=== PATIENT | female | born 1980 | race Caucasian/White ===

== ENCOUNTER 2018-12-13 10:26 | Emergency (ER) | payer SELFPAY ==
[~2018-12-13] VITALS: Ht 152.4 cm; Wt 68.2 kg
[2018-12-13] MEDS ORDERED: LEXA1TAB2 PO (10:47)
[2018-12-13] MEDS ORDERED: METH5TA PO (10:47)
[2018-12-13] MEDS ORDERED: ADDE20CA3 PO (10:47)
[2018-12-13 12:00] LABS: BASO % 0.4 % (0.0-1.0); EOS % 0.2 % (0.0-3.0); HEMATOCRIT 43.4 % (36.0-47.0); HEMOGLOBIN 14.7 g/dl (12.0-15.5); LYMPH # 1.1 10^3/uL (1.5-5.0); LYMPH % 12.8 % (24.0-44.0); MEAN CORPUSCULAR HEMOGLOBIN 29.3 pg (27.0-33.0); MEAN CORPUSCULAR HGB CONC 33.9 g/dl (32.0-36.5); MEAN CORPUSCULAR VOLUME 86.6 fl (80.0-96.0); MONO # 0.4 10^3/uL (0.0-0.8); MONO % 4.6 % (0.0-5.0); NEUTROPHILS % 81.8 % (36.0-66.0); PLATELET COUNT, AUTOMATED 200 10^3/uL (150-450); RED BLOOD COUNT 5.01 10^6/uL (4.00-5.40); WHITE BLOOD COUNT 8.6 10^3/uL (4.0-10.0)
[2018-12-13] MEDS ORDERED: cloNIDine 0.1 MG TAB PO ONE (12:15)
[2018-12-13] MEDS ORDERED: PROMETHAZINE INJ 25 MG/ML VIAL (J2550) IV ONE (12:15)
[2018-12-13] MEDS ORDERED: NS 1,000 ML IV ONE (12:15)
[2018-12-13 12:26] LABS: ALBUMIN 3.7 GM/DL (3.2-5.2); BILIRUBIN,DIRECT 0.1 MG/DL (0.0-0.2); BILIRUBIN,TOTAL 0.5 MG/DL (0.2-1.0); TOTAL PROTEIN 7.1 GM/DL (6.4-8.2)
[2018-12-13 12:28] VITALS: BP 155/73
[2018-12-13 12:50] LABS: HCG, SERUM QUALITATIVE NEGATIVE (NEGATIVE)
[2018-12-13] MEDS ORDERED: ISOVUE-370 76% 100ML VIAL (Q9967) As Ordered ONE (13:03)
[2018-12-13] MEDS ORDERED: NS 1,000 ML IV SCH (13:42)
--- NOTE | 2018-12-13 14:04 | REP ---
REASON: Generalized abdominal pain. PRIORS: None. CONTRAST: 100 mL Isovue-370 The lung bases are clear. The liver, gallbladder, spleen, pancreas, adrenal glands, and kidneys are within normal limits. The abdominal aorta and para-aortic regions are within normal limits. There is no free fluid or free air. The bowel loops and their mesenteries are within normal limits. There is no evidence of an intra-abdominal mass or adenopathy. CT PELVIS: There is no pelvic mass or adenopathy. There is no free fluid or free air. The bowel loops and their mesenteries are within normal limits. Bone window technique throughout the exam shows the osseous structures to be within normal limits. IMPRESSION: CT findings are within normal limits. Electronically Signed by Harjit Quintanilla DO 12/13/2018 03:20 P
[2018-12-13 16:30] VITALS: BP 148/88
== END 2018-12-13 16:59 | disposition home or self-care (01) ==
LOC: M ED 10:26 → EDBD 10:26 → M ED 16:59
DX: F11.23 Opioid dependence with withdrawal (principal); F33.9 Major depressive disorder, recurrent, unspecified; F41.9 Anxiety disorder, unspecified; F43.10 Post-traumatic stress disorder, unspecified; Z79.899 Other long term (current) drug therapy; F17.210 Nicotine dependence, cigarettes, uncomplicated
CPT/HCPCS: 74177; 80047; 80076; 83690; 84702; 84703; 85025; 93041; 96361; 96374; 99285; Q9967

== ENCOUNTER 2019-02-22 15:02 | Inpatient (IN) | payer OTHER, SELFPAY ==
[~2019-02-22] VITALS: Ht 152.4 cm; Wt 63.6 kg
[~2019-02-22 15:02] MED LIST: ADDE20CA3 PO; LEXA1TAB2 PO; METH5TA PO
[2019-02-22 16:48] LABS: HEMATOCRIT 38.8 % (36.0-47.0); HEMOGLOBIN 12.9 g/dl (12.0-15.5); MEAN CORPUSCULAR HEMOGLOBIN 29.5 pg (27.0-33.0); MEAN CORPUSCULAR HGB CONC 33.2 g/dl (32.0-36.5); MEAN CORPUSCULAR VOLUME 88.8 fl (80.0-96.0); PLATELET COUNT, AUTOMATED 195 10^3/uL (150-450); RED BLOOD COUNT 4.37 10^6/uL (4.00-5.40); WHITE BLOOD COUNT 8.2 10^3/uL (4.0-10.0)
[2019-02-22 17:23] LABS: HCG, SERUM QUALITATIVE NEGATIVE (NEGATIVE)
[2019-02-22 17:30] LABS: ACETAMINOPHEN LEVEL < 2.0 UG/ML (10.0-30.0); ALBUMIN 3.2 GM/DL (3.2-5.2); ALT/SGPT 21 U/L (12-78); BILIRUBIN,DIRECT < 0.1 MG/DL (0.0-0.2); BILIRUBIN,TOTAL 0.2 MG/DL (0.2-1.0); BLOOD UREA NITROGEN 14 MG/DL (7-18); CALCIUM LEVEL 7.7 MG/DL (8.5-10.1); CARBON DIOXIDE LEVEL 29 MEQ/L (21-32); CHLORIDE LEVEL 106 MEQ/L (98-107); CREATININE FOR GFR 0.65 MG/DL (0.55-1.30); ETHYL ALCOHOL (ETHANOL) < 0.003 % (0.000-0.010); GLOMERULAR FILTRATION RATE > 60.0 (>60); GLUCOSE, FASTING 83 MG/DL (70-100); SALICYLATE LEVEL 1.9 MG/DL (5.0-30.0); SODIUM LEVEL 140 MEQ/L (136-145); TOTAL PROTEIN 6.1 GM/DL (6.4-8.2)
[2019-02-22 17:59] LABS: AMPHETAMINES LEVEL URINE NEGATIVE (NEGATIVE); BARBITURATES URINE NEGATIVE (NEGATIVE); BENZODIAZEPINES URINE NEGATIVE (NEGATIVE); CANNABINOIDS URINE POSITIVE (NEGATIVE); COCAINE METABOLITE URINE NEGATIVE (NEGATIVE); METHADONE URINE NEGATIVE (NEGATIVE); OPIATES URINE NEGATIVE (NEGATIVE); PHENCYCLIDINE URINE NEGATIVE (NEGATIVE)
[2019-02-22] MEDS ORDERED: traZODone 50 MG TAB PO PRN (18:45)
[2019-02-22] MEDS ORDERED: MAALOX 30 ML SUSP *UDC PO PRN (18:45)
[2019-02-22] MEDS ORDERED: ACETAMINOPHEN TAB 650MG DOSE (2X325MG) PO PRN (18:45)
[2019-02-22] MEDS ORDERED: MOM 30ML SUSPENSION UDC PO PRN (18:45)
[2019-02-22] MEDS ORDERED: ESCITALOPRAM OXALATE 10 MG TAB (LEXAPRO) PO ONE (19:00)
[2019-02-22] MEDS ORDERED: SUBO12MI SL (19:24)
[2019-02-22] MEDS ORDERED: DOCU100C17 PO (19:24)
[2019-02-22 20:39] VITALS: BP 110/57
[2019-02-23 06:05] VITALS: BP 114/55
[2019-02-23] MEDS ORDERED: BUPRENORPHINE/NALOXONE 8-2MG SUBLINGUAL TABLET(SUBOXONE) SL SCH (09:00)
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
[2019-02-23] MEDS ORDERED: BUPRENORPHINE/NALOXONE 8-2MG SUBLINGUAL TABLET(SUBOXONE) SL ONE (14:45)
[2019-02-23] MEDS: NICOTINE 21MG/24HR 1 EA TRANSDERMAL TD SCH (15:12)
[2019-02-23] MEDS ORDERED: DOCUSATE SODIUM 100 MG CAP PO PRN (15:15)
[2019-02-23] MEDS: ARIPiprazole 2 MG TAB PO SCH (17:46)
[2019-02-23] MEDS: ESCITALOPRAM OXALATE 10 MG TAB (LEXAPRO) PO SCH (17:46)
[2019-02-23 18:00] VITALS: BP 135/78
[2019-02-24 06:30] VITALS: BP 119/71
[2019-02-24] MEDS: NICOTINE 21MG/24HR 1 EA TRANSDERMAL TD SCH (08:28)
[2019-02-24] MEDS: ESCITALOPRAM OXALATE 10 MG TAB (LEXAPRO) PO SCH (08:28)
[2019-02-24] MEDS: ARIPiprazole 2 MG TAB PO SCH (08:28)
[2019-02-24] MEDS ORDERED: BUPRENORPHINE/NALOXONE 8-2MG SUBLINGUAL TABLET(SUBOXONE) SL SCH (09:00)
[2019-02-24] MEDS ORDERED: SUBO12MI SL (10:20)
[2019-02-24] MEDS ORDERED: LEXA1TAB2 PO (10:20)
[2019-02-24] MEDS ORDERED: NICO21PAT TD (10:20)
[2019-02-24] MEDS ORDERED: ABIL1TAB13 PO (10:20)
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
== END 2019-02-24 14:35 | disposition home or self-care (01) | DRG 758 ==
LOC: M ED 15:02 → M ED INP 18:33 → M PSY 20:24
PROVIDERS: ADMIT Psychiatry & Neurology Psychiatry; ATTEND Psychiatry & Neurology Addiction Medicine
DX: F63.9 Impulse disorder, unspecified (principal); F32.9 Major depressive disorder, single episode, unspecified; F15.20 Other stimulant dependence, uncomplicated; F16.20 Hallucinogen dependence, uncomplicated; F11.20 Opioid dependence, uncomplicated; F17.210 Nicotine dependence, cigarettes, uncomplicated; F60.3 Borderline personality disorder; Z62.810 Personal history of physical and sexual abuse in childhood; Z63.5 Disruption of family by separation and divorce; Z79.899 Other long term (current) drug therapy; Z91.14 Patient's other noncompliance with medication regimen; Z60.8 Other problems related to social environment

== ENCOUNTER 2019-03-21 13:16 | Inpatient (IN) | payer OTHER ==
[~2019-03-21] VITALS: Ht 152.4 cm; Wt 59.9 kg
[2019-03-21] MEDS: NICOTINE 21MG/24HR 1 EA TRANSDERMAL TD SCH (09:00)
[~2019-03-21 13:16] MED LIST changes: +ABIL1TAB13 PO; +DOCU100C17 PO; +NICO21PAT TD; +SUBO12MI SL
[2019-03-21 14:31] LABS: HEMATOCRIT 44.3 % (36.0-47.0); HEMOGLOBIN 14.3 g/dl (12.0-15.5); MEAN CORPUSCULAR HEMOGLOBIN 29.1 pg (27.0-33.0); MEAN CORPUSCULAR HGB CONC 32.3 g/dl (32.0-36.5); MEAN CORPUSCULAR VOLUME 90.2 fl (80.0-96.0); PLATELET COUNT, AUTOMATED 218 10^3/uL (150-450); RED BLOOD COUNT 4.91 10^6/uL (4.00-5.40); WHITE BLOOD COUNT 7.7 10^3/uL (4.0-10.0)
[2019-03-21 14:55] LABS: HCG, SERUM QUALITATIVE NEGATIVE (NEGATIVE)
[2019-03-21 15:02] LABS: ACETAMINOPHEN LEVEL < 2.0 UG/ML (10.0-30.0); ALBUMIN 3.6 GM/DL (3.2-5.2); ALT/SGPT 22 U/L (12-78); BILIRUBIN,DIRECT < 0.1 MG/DL (0.0-0.2); BILIRUBIN,TOTAL 0.3 MG/DL (0.2-1.0); BLOOD UREA NITROGEN 15 MG/DL (7-18); CARBON DIOXIDE LEVEL 26 MEQ/L (21-32); CHLORIDE LEVEL 109 MEQ/L (98-107); CK-MB VALUE MASS < 1.0 NG/ML (<3.6); CPK CREATINE PHOSPHOKINASE 41 U/L (26-192); CREATININE FOR GFR 0.82 MG/DL (0.55-1.30); ETHYL ALCOHOL (ETHANOL) < 0.003 % (0.000-0.010); GLOMERULAR FILTRATION RATE > 60.0 (>60); GLUCOSE, FASTING 82 MG/DL (70-100); MB/CK RELATIVE INDEX 2.44 (< OR =4); POTASSIUM SERUM 4.1 MEQ/L (3.5-5.1); SODIUM LEVEL 141 MEQ/L (136-145); TOTAL PROTEIN 6.7 GM/DL (6.4-8.2); TROPONIN I < 0.02 NG/ML (< 0.10)
[2019-03-21 16:59] LABS: AMPHETAMINES LEVEL URINE POSITIVE (NEGATIVE); BARBITURATES URINE NEGATIVE (NEGATIVE); BENZODIAZEPINES URINE NEGATIVE (NEGATIVE); CANNABINOIDS URINE POSITIVE (NEGATIVE); COCAINE METABOLITE URINE NEGATIVE (NEGATIVE); METHADONE URINE NEGATIVE (NEGATIVE); OPIATES URINE NEGATIVE (NEGATIVE); PHENCYCLIDINE URINE NEGATIVE (NEGATIVE)
[2019-03-21] MEDS ORDERED: ARIP1TAB4 PO (17:42)
[2019-03-21] MEDS ORDERED: LEXA1TAB2 PO (17:43)
[2019-03-21] MEDS ORDERED: SUBO12MI SL (17:43)
[2019-03-21] MEDS ORDERED: [UNRECOGNIZED DRUG - OTHER] (17:44)
[2019-03-21] MEDS ORDERED: MOM 30ML SUSPENSION UDC PO PRN (18:00)
[2019-03-21] MEDS ORDERED: ACETAMINOPHEN TAB 650MG DOSE (2X325MG) PO PRN (18:00)
[2019-03-21] MEDS ORDERED: MAALOX 30 ML SUSP *UDC PO PRN (18:00)
--- NOTE | 2019-03-21 19:00 | ECGEPIP ---
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
[2019-03-22 06:28] VITALS: BP 114/69
[2019-03-22] MEDS: BUPRENORPHINE/NALOXONE 8-2MG SUBLINGUAL TABLET(SUBOXONE) SL SCH (09:00)
[2019-03-22] MEDS: ARIPiprazole 2 MG TAB PO SCH (09:00)
[2019-03-22] MEDS: ESCITALOPRAM OXALATE 10 MG TAB (LEXAPRO) PO SCH (09:00)
[2019-03-22] MEDS: OLANZapine ORAL DISINTEGRATING TAB 5MG PO PRN (09:10)
[2019-03-22] MEDS: NICOTINE 21MG/24HR 1 EA TRANSDERMAL TD SCH (09:10)
[2019-03-22 11:18] VITALS: BP 111/63
[2019-03-22 20:17] VITALS: BP 131/77
--- NOTE | 2019-03-22 20:22 | HPE ---
DATE OF ADMISSION: 03/21/2019 38-year-old female denies any significant past medical problems. No diabetes, asthma, hypertension or anything which requires primary care physician. MEDICATIONS: Per list. ALLERGIES: No known. FAMILY HISTORY: Negative for diabetes or heart disease. REVIEW OF SYSTEMS: No chest pain, shortness of breath, dyspnea on exertion. No polyuria or polydipsia. PHYSICAL EXAMINATION: Vitals per flow sheet. HEENT: Unremarkable. No cervical adenopathy. No thyromegaly. Lungs are clear. Heart without murmur. Abdomen soft. No masses. No peripheral edema. Neurological exam: Nonfocal. LABORATORY: Unremarkable. IMPRESSION: The patient is medically stable, has no ongoing medical problems; however, should require consultation, please call and we will see Pipe Jax again.
[2019-03-23 06:48] VITALS: BP 120/77
[2019-03-23] MEDS: ARIPiprazole 2 MG TAB PO SCH (08:26)
[2019-03-23] MEDS: NICOTINE 21MG/24HR 1 EA TRANSDERMAL TD SCH (08:26)
[2019-03-23] MEDS: BUPRENORPHINE/NALOXONE 8-2MG SUBLINGUAL TABLET(SUBOXONE) SL SCH (08:26)
[2019-03-23] MEDS: ESCITALOPRAM OXALATE 10 MG TAB (LEXAPRO) PO SCH (08:26)
--- NOTE | 2019-03-23 11:30 | MHIPNPDOC ---
[facility] Progress Note Progress Note DATE OF SERVICE: 03/23/19 HISTORY: Pt is 38y/o CF with a history of of substance abuse who self presented to ED with SI due to stressor of recently giving up her children willingly b/c she couldn't care for them 1wk ago, missing her outpatient appointment so meds not filled (abilify, lexapro, suboxone) which caused her to self medicate her mood with methamphetamines, cannabis, and consuelo. VITAL SIGNS: See below. NEW TEST RESULTS: see below CURRENT MEDICATIONS: See below. MENTAL STATUS EXAMINATION: Patient is a 38-year old female, who is unkempt and not showered. Speech: Is pressured and intact. Language skills are clear and pressured. Thought processes including: logical and linear . Thought content: denies SI/HI, AVH. Abstract reasoning, and computation: intact. Description of associations: intact. Description of abnormal or psychotic thoughts: denies. Judgment: poor. Insight: poor. Orientation: AAOx3. Recent and remote memory: intact. Attention span and concentration: intact. Language: intact. Fund of knowledge: intact. Mood: "okay". Affect: constricted, depressed. DIAGNOSES: 1. adjustment d/o w/ depressed mood. 2. substance induced mood d/o secondary to opiate withdrawal 3. opiate use d/o - chronic 4. methamphetamine, psychedelic, cannabis use d/o ASSESSMENT: Pt seen and states that her mood is "okay." She states she called CPS on herself because there was no food, water, or heat in her home and she wanted to make sure her kids were "safe." States she gave up custody of them willingly. She she feels "better now that I'm on Suboxone." States she slept well last night. Feels she is tolerating his medications and they're beneficial. She is encouraged to attend groups. She denies insomnia, SI/HI, hallucinations, and delusions. Pt feels safe here. MANAGEMENT PLAN: continue Suboxone, Abilify, Lexapro, and prn Zyprexa. Reevaluate tomorrow. TIME SPENT: 30 minutes. Vital Signs Vital Signs Date Time Temp Pulse Resp B/P (MAP) Pulse Ox O2 Delivery O2 Flow Rate FiO2 12/23/19 06:48 98.2 81 14 120/77 (91) 03/22/19 06:28 Room Air 03/21/19 19:09 98 Current Medications Current Medications Medications (Trade) Dose Ordered Sig/Allen Route PRN Reason Start Time Stop Time Status Last Admin Dose Admin Acetaminophen (Tylenol Tab) 650 mg Q6HP PRN PO HEADACHE or DISCOMFORT 03/21/19 18:00 Al Hydrox/Mg Hydrox/Simethicone (Mylanta) 30 ml Q4HP PRN PO HEARTBURN/INDIGESTION 03/21/19 18:00 Aripiprazole (AbiLIFY) 2 mg DAILY PO 03/22/19 09:00 03/23/19 08:26 Buprenorphine/ Naloxone (Suboxone 8/2mg) 1 tab DAILY SL 03/22/19 09:00 03/23/19 08:26 Escitalopram Oxalate (Lexapro) 20 mg DAILY PO 03/22/19 09:00 03/23/19 08:26 Home Med (Med Rec Complete!) ASDIRECTED XX 03/21/19 17:45 03/21/19 17:53 DC Magnesium Hydroxide (Milk Of Magnesia) 30 ml DAILYPRN PRN PO CONSTIPATION 03/21/19 18:00 Nicotine (Nicoderm Cq 21mg) 1 patch DAILY TD 03/21/19 09:00 03/23/19 08:26 Olanzapine (ZyPREXA ZYDIS) 5 mg Q6HP PRN PO AGITATION 03/21/19 18:00 03/22/19 09:10 Trazodone HCl (Desyrel) 50 mg QHSP PRN PO INSOMNIA 03/21/19 18:00 Allergies Coded Allergies: No Known Allergies (Verified Allergy, Unknown, 03/21/19) TASNEEM PIRES DO Mar 23, 2019 10:48 am
[2019-03-23 16:49] VITALS: BP 107/59
[2019-03-23] MEDS: OLANZapine ORAL DISINTEGRATING TAB 5MG PO PRN (20:52)
[2019-03-23] MEDS: traZODone 50 MG TAB PO PRN (20:52)
[2019-03-24 06:03] VITALS: BP 121/58
--- NOTE | 2019-03-24 07:05 | MHHPE ---
DATE OF ADMISSION: 03/21/2019 CHIEF COMPLAINT: Feels suicidal. SUBJECTIVE: She is 38 years old, she has a history of emotional difficulties, as well as substance abuse, was here at the inpatient unit recently, admitted on February 22, discharged February 24, seen by Dr. Carson. Please see the discharge summary, she was diagnosed with unspecified depressive disorder, methamphetamine use disorder, hallucinogen use disorder, opioid use disorder, borderline personality disorder. She was discharged on Abilify 2 mg daily, Suboxone 12 mg-3 mg daily, Lexapro 20 mg daily, and referred for followup appointment, but did not attend, says when she ran out of the medicine, did not renew it and gives various reasons for not following up, says relapsed, started using methamphetamines and "consuelo" again, that escalated until just before she came, says began feeling increasingly depressed, anxious, and suicidal, says was thinking of overdosing, and brought herself in. Says she wishes to "get back on track" in order to have her children returned to her. They are under Child Protective Services (CPS) involvement now, she gets supervised visits. Suggests, later on, that she last used cannabis a few days ago, as well as "consuelo" and has been using bath salts. She suggests she would feel better once she has resumed her medicines and wants to work on getting into treatment. Says had difficulties with rides as well, had been referred to [facility] apparently. PAST PSYCHIATRIC HISTORY: As indicated above, please refer to Dr. Carson's previous summary. She was admitted here about a month ago, for a couple of days. MENTAL STATUS EXAMINATION: She is seen in the presence of staff, she is lying in bed, she is cooperative, a bit unkempt, appears mildly anxious, no agitation, no psychomotor retardation. She is coherent. Has suicidal thoughts, vague on plans. No homicidal ideas or intents. No evidence of any psychosis. Her cognition is grossly intact. No fluctuation of consciousness. Intellect is average. Judgment and insight are compromised. VITAL SIGNS: Blood pressure 111/63, pulse 93, temperature 97.8. Other investigations include a complete blood count which is within normal limits. Metabolic profile essentially within normal limits except for chloride of 109, which is slightly raised. Urine toxicology is positive for amphetamines and cannabinoids. ASSESSMENT: Unspecified depressive disorder. Methamphetamine use disorder. Cannabis use disorder. Hallucinogen use disorder. She has relapsed, has difficulties coping, has been nonadherent to treatment recommendations. It is quite possible her difficulties are mostly related to her misuse of various substances, including the amphetamines and the hallucinogens. Unclear if she has a comorbid depressive disorder or mood disorder. PLAN: She is admitted to the inpatient psychiatry unit, placed on relevant precautions. We will look at obtaining collateral information. Would suggest resuming her on previous medicines, and would encourage her to engage in activities in the unit, and plans for discharge to a substance abuse treatment program. Would explore ways in which she could be assisted in adhering to the recommendations. She will be seeing the assigned psychiatrist at the treatment unit tomorrow. I would anticipate a 3-5 day stay. The assessment took 30 minutes.
[2019-03-24] MEDS: ESCITALOPRAM OXALATE 10 MG TAB (LEXAPRO) PO SCH (09:06)
[2019-03-24] MEDS: BUPRENORPHINE/NALOXONE 8-2MG SUBLINGUAL TABLET(SUBOXONE) SL SCH (09:06)
[2019-03-24] MEDS: ARIPiprazole 2 MG TAB PO SCH (09:06)
[2019-03-24] MEDS: NICOTINE 21MG/24HR 1 EA TRANSDERMAL TD SCH (09:07)
--- NOTE | 2019-03-24 09:27 | MHIPNPDOC ---
[facility] Progress Note Progress Note DATE OF SERVICE: 03/24/19 HISTORY: Pt is 38y/o CF with a history of of substance abuse who self presented to ED with SI due to stressor of recently giving up her children willingly b/c she couldn't care for them 1wk ago, missing her outpatient appointment so meds not filled (abilify, lexapro, suboxone) which caused her to self medicate her mood with methamphetamines, cannabis, and consuelo. VITAL SIGNS: See below. NEW TEST RESULTS: see below CURRENT MEDICATIONS: See below. MENTAL STATUS EXAMINATION: Patient is a 38-year old female, who is unkempt but states that "she did shower yesterday." Speech: Is pressured and intact. Language skills are clear, rapid, and normal volume. Thought processes including: logical and linear . Thought content: States that she did think of harming herself (passive SI) this morning but with no specific plan but that thought did not last. Denies HI, AVH, and delusions. Abstract reasoning, and computation: intact. Description of associations: intact. Description of abnormal or psychotic thoughts: denies. Judgment: poor. Insight: poor. Orientation: AAOx3. Recent and remote memory: intact. Attention span and concentration: intact. Language: intact. Fund of knowledge: intact. Mood: "alright, I'm sad because it is [place]". Affect: depressed. DIAGNOSES: 1. adjustment d/o w/ depressed mood. 2. substance induced mood d/o secondary to opiate withdrawal 3. opiate use d/o - chronic 4. methamphetamine, psychedelic, cannabis use d/o ASSESSMENT: Pt seen and states that her mood is "alright, I'm sad because it is [place]." States that she had thoughts of harming herself this morning but has no specified plan- she believes that she is feeling more sad today because it is [place] and she is in the hospital alone. She states she feels "better now that I'm on Suboxone." States she was in and out of sleep last night and was not rested this morning agreeable to increasing trazodone at night for better sleep. Feels she is tolerating her medications and they're beneficial. She is encouraged to attend groups as she has not attended on yet, isolating in bed mostly, and still appears quite disheveled. She denies HI, hallucinations, and delusions. Pt feels safe here. MANAGEMENT PLAN: continue Suboxone, Abilify, Lexapro, and prn Zyprexa. TIME SPENT: 30 minutes. Vital Signs Vital Signs Date Time Temp Pulse Resp B/P (MAP) Pulse Ox O2 Delivery O2 Flow Rate FiO2 03/24/19 06:03 97.9 80 18 121/58 (79) 03/22/19 06:28 Room Air 03/21/19 19:09 98 Current Medications Current Medications Medications (Trade) Dose Ordered Sig/Allen Route PRN Reason Start Time Stop Time Status Last Admin Dose Admin Acetaminophen (Tylenol Tab) 650 mg Q6HP PRN PO HEADACHE or DISCOMFORT 03/21/19 18:00 Al Hydrox/Mg Hydrox/Simethicone (Mylanta) 30 ml Q4HP PRN PO HEARTBURN/INDIGESTION 03/21/19 18:00 Aripiprazole (AbiLIFY) 2 mg DAILY PO 03/22/19 09:00 03/23/19 08:26 Buprenorphine/ Naloxone (Suboxone 8/2mg) 1 tab DAILY SL 03/22/19 09:00 03/23/19 08:26 Escitalopram Oxalate (Lexapro) 20 mg DAILY PO 03/22/19 09:00 03/23/19 08:26 Home Med (Med Rec Complete!) ASDIRECTED XX 03/21/19 17:45 03/21/19 17:53 DC Magnesium Hydroxide (Milk Of Magnesia) 30 ml DAILYPRN PRN PO CONSTIPATION 03/21/19 18:00 Nicotine (Nicoderm Cq 21mg) 1 patch DAILY TD 03/21/19 09:00 03/23/19 08:26 Olanzapine (ZyPREXA ZYDIS) 5 mg Q6HP PRN PO AGITATION 03/21/19 18:00 03/23/19 20:52 Trazodone HCl (Desyrel) 50 mg QHSP PRN PO INSOMNIA 03/21/19 18:00 03/23/19 20:52 Allergies Coded Allergies: No Known Allergies (Verified Allergy, Unknown, 03/21/19) TASNEEM PIRES DO Mar 24, 2019 9:11 am
[2019-03-24 11:41] VITALS: BP 109/57
[2019-03-24 16:18] VITALS: BP 111/58
[2019-03-24] MEDS: traZODone 50 MG TAB PO PRN (22:35)
[2019-03-25 06:30] VITALS: BP 119/62
[2019-03-25] MEDS: BUPRENORPHINE/NALOXONE 8-2MG SUBLINGUAL TABLET(SUBOXONE) SL SCH (09:16)
[2019-03-25] MEDS: ARIPiprazole 2 MG TAB PO SCH (09:16)
[2019-03-25] MEDS: NICOTINE 21MG/24HR 1 EA TRANSDERMAL TD SCH (09:17)
[2019-03-25] MEDS: ESCITALOPRAM OXALATE 10 MG TAB (LEXAPRO) PO SCH (09:17)
--- NOTE | 2019-03-25 15:26 | MHIPN ---
DATE: 03/25/2019 VITAL SIGNS: Temperature 97.4, pulse 73, respirations 16, blood pressure 119/62. CURRENT MEDICATIONS: - Suboxone 8 mg/2 mg daily - Lexapro 20 mg daily - Abilify 2 mg daily - trazodone 50 mg at night as needed - Zyprexa 5 mg every 6 hours as needed HISTORY OF PRESENT ILLNESS: This is a 38-year-old white female with a history of depression and substance use. The patient lost custody of her children due to her substance use, they are in custody of Child Protective Services (CPS). The patient had failed to follow up with outpatient chemical dependency services and had relapsed in her drugs of choice. The patient admits to being depressed but is hopeful about the future. She hopes to move here to the [facility] with her 22-year-old daughter and her boyfriend so she will have better access to chemical dependency treatment. MENTAL STATUS EXAMINATION: The patient is alert, oriented, cooperative. Affect appears quite sad. Mood is moderately to severely depressed. She is not currently suicidal. She denies any signs of psychosis. She is not hearing voices. No signs of paranoia or thought disorder. Insight and judgment remain poor. Grooming and hygiene are poor. No signs of cognitive deficits. DIAGNOSES: 1. Adjustment disorder with depressed mood. 2. Substance induced mood disorder secondary to opiate withdrawal. 3. Opiate use disorder, chronic. 4. Methamphetamine, psychedelic, cannabis use disorder. PLAN: Continue present management.
[2019-03-25] MEDS: OLANZapine ORAL DISINTEGRATING TAB 5MG PO PRN (16:29)
[2019-03-25 16:39] VITALS: BP 137/78
[2019-03-26 06:27] VITALS: BP 139/86
[2019-03-26] MEDS: BUPRENORPHINE/NALOXONE 8-2MG SUBLINGUAL TABLET(SUBOXONE) SL SCH (09:00)
[2019-03-26] MEDS: ARIPiprazole 2 MG TAB PO SCH (09:00)
[2019-03-26] MEDS: ESCITALOPRAM OXALATE 10 MG TAB (LEXAPRO) PO SCH (09:00)
[2019-03-26] MEDS: NICOTINE 21MG/24HR 1 EA TRANSDERMAL TD SCH (09:00)
--- NOTE | 2019-03-26 09:36 | MHIPNPDOC ---
[facility] Progress Note Progress Note DATE OF SERVICE: 03/26/19 HISTORY: This is a 38-year-old white female with a history of depression and substance use. The patient lost custody of her children due toher substance use , they are in custody of Child Protective Services (CPS). The patient had failed to follow up with outpatient chemical dependency services andhad relapsed in her drugs of choice. The patient admits to being depressed but is hopeful about the future. She hopes to move here [place] the [facility] withher 22-year-old daughter and her boyfriend so she will have better access to chemi radha dependency treatment. VITAL SIGNS: See below. NEW TEST RESULTS: See below. CURRENT MEDICATIONS: See below. MENTAL STATUS EXAMINATION: Patient is a 38-year old female, who is unkempt, disheveled and not showered, malodorous. Speech: Is clear, reg rate, normal volume. Language skills are intact. Thought processes including: logical, linear, intact. Thought content: denies, SI/HI, AVH, and delusions. Abstract reasoning, and computation: intact. Description of associations: denies. Description of abnormal or psychotic thoughts: denies. Judgment: poor. Insight: poor. Orientation: AAOx3. Recent and remote memory: intact. Attention span and concentration: intact. Language: intact. Fund of knowledge: intact. Mood: "okay." Affect: full, less anxious, and less depressed DIAGNOSES: 1. Adjustment disorder with depressed mood. 2. Substance induced mood disorder secondary to opiate withdrawal. 3. Opiate use disorder, chronic. 4. Methamphetamine, psychedelic, cannabis use disorder. ASSESSMENT: Pt seen and states that her mood is "ok," asking to stay and be referred to inpatient substance abuse treatment. States her mood is improving with her current meds that she's tolerati yesterday was hard because it was [place]." She appeared hopeful as she stated her boyfriend came and showed her videos of her kids. Pt states she slept well last night. Is med seeking for more Suboxone twice ad day- once in the morning and once in the afternoon and was advised that will not be changed as she is here for depression and not substance abuse treatment, nor does she need the increase based on no opiate withdrawal symptoms at her current daily dose. She is encouraged to attend groups today as there were none yesterday. She denies insomnia, SI/HI, AVH, delusions. Pt feels safe here. MANAGEMENT PLAN: CURRENT MEDICATIONS: - Suboxone 8 mg/2 mg daily - Lexapro 20 mg daily - Abilify 2 mg daily - trazodone 50 mg at night as needed - Zyprexa 5 mg every 6 hours as needed. TIME SPENT: 30 minutes. Vital Signs Vital Signs Date Time Temp Pulse Resp B/P (MAP) Pulse Ox O2 Delivery O2 Flow Rate FiO2 03/26/19 06:27 97.3 80 16 139/86 (103) 03/22/19 06:28 Room Air 03/21/19 19:09 98 Current Medications Current Medications Medications (Trade) Dose Ordered Sig/Allen Route PRN Reason Start Time Stop Time Status Last Admin Dose Admin Acetaminophen (Tylenol Tab) 650 mg Q6HP PRN PO HEADACHE or DISCOMFORT 03/21/19 18:00 Al Hydrox/Mg Hydrox/Simethicone (Mylanta) 30 ml Q4HP PRN PO HEARTBURN/INDIGESTION 03/21/19 18:00 Aripiprazole (AbiLIFY) 2 mg DAILY PO 03/22/19 09:00 03/25/19 09:16 Buprenorphine/ Naloxone (Suboxone 8/2mg) 1 tab DAILY SL 03/22/19 09:00 03/25/19 09:16 Escitalopram Oxalate (Lexapro) 20 mg DAILY PO 03/22/19 09:00 03/25/19 09:17 Home Med (Med Rec Complete!) ASDIRECTED XX 03/21/19 17:45 03/21/19 17:53 DC Magnesium Hydroxide (Milk Of Magnesia) 30 ml DAILYPRN PRN PO CONSTIPATION 03/21/19 18:00 Nicotine (Nicoderm Cq 21mg) 1 patch DAILY TD 03/21/19 09:00 03/25/19 09:17 Olanzapine (ZyPREXA ZYDIS) 5 mg Q6HP PRN PO AGITATION 03/21/19 18:00 03/25/19 16:29 Trazodone HCl (Desyrel) 50 mg QHSP PRN PO INSOMNIA 03/21/19 18:00 03/24/19 22:35 Allergies Coded Allergies: No Known Allergies (Verified Allergy, Unknown, 03/21/19) TASNEEM PIRES DO Mar 26, 2019 8:36 am
[2019-03-26] MEDS: OLANZapine ORAL DISINTEGRATING TAB 5MG PO PRN (14:48)
[2019-03-26 16:06] VITALS: BP 133/79
[2019-03-27 06:42] VITALS: BP 129/84
[2019-03-27] MEDS: ESCITALOPRAM OXALATE 10 MG TAB (LEXAPRO) PO SCH (08:06)
[2019-03-27] MEDS: NICOTINE 21MG/24HR 1 EA TRANSDERMAL TD SCH (08:06)
[2019-03-27] MEDS: ARIPiprazole 2 MG TAB PO SCH (08:06)
[2019-03-27] MEDS: BUPRENORPHINE/NALOXONE 8-2MG SUBLINGUAL TABLET(SUBOXONE) SL SCH (08:39)
[2019-03-27] MEDS ORDERED: ARIPiprazole 2 MG TAB PO ONE (10:00)
--- NOTE | 2019-03-27 14:28 | MHIPN ---
DATE: 03/27/2019 VITAL SIGNS: Temperature 99.3, pulse 84, respirations 14, blood pressure 129/84. CURRENT MEDICATIONS: - Abilify 5 mg daily - trazodone 50 mg at bedtime - Suboxone 8 mg daily - Lexapro 20 mg daily - Zyprexa Zydis 5 mg every 6 hours as needed HISTORY OF PRESENT ILLNESS: This is a 38-year-old white female with a history of depression and substance abuse seen by Dr. Tenorio. Patient reports her mood is better now. Her appetite is fine. She falls asleep fine, but has trouble staying asleep. She forgot to take the trazodone last night. Patient does complain of racing thoughts. She is encouraged to take the as needed Zyprexa. She does have some craving for substances, specifically, injecting "Jyothi" intravenous. Patient is demanding for more Suboxone. She claims she has been on a higher dosage. Staff contacted her outpatient provider and patient has been missing in action. MENTAL STATUS EXAMINATION: Patient is alert, oriented and cooperative. Affect is still sad. Mood is mildly to moderately depressed. No current signs of dangerousness. She is not homicidal, not suicidal. She does have racing thoughts. She is not psychotic. Insight and judgment remain poor. Grooming and hygiene appear poor. No signs of organicity. DIAGNOSES: 1. Adjustment disorder with depressed mood. 2. Substance-induced mood disorder secondary to opiate withdrawal. 3. Opiate use disorder, chronic. 4. Methamphetamine, psychedelic and cannabis use disorder. PLAN: Continue present management. Involve in hospital milieu. Staff working on disposition for chemical dependency.
[2019-03-27] MEDS: OLANZapine ORAL DISINTEGRATING TAB 5MG PO PRN ×2 (14:29→21:54)
[2019-03-27 16:10] VITALS: BP 128/82
[2019-03-27] MEDS: traZODone 50 MG TAB PO SCH (21:53)
[2019-03-28 06:19] VITALS: BP 136/61
[2019-03-28] MEDS: NICOTINE 21MG/24HR 1 EA TRANSDERMAL TD SCH (09:09)
[2019-03-28] MEDS: ESCITALOPRAM OXALATE 10 MG TAB (LEXAPRO) PO SCH (09:09)
[2019-03-28] MEDS: BUPRENORPHINE/NALOXONE 8-2MG SUBLINGUAL TABLET(SUBOXONE) SL SCH (09:38)
[2019-03-28 16:19] VITALS: BP 134/80
[2019-03-28] MEDS: traZODone 50 MG TAB PO SCH (20:18)
[2019-03-28] MEDS: OLANZapine ORAL DISINTEGRATING TAB 5MG PO PRN (20:19)
[2019-03-29 06:04] VITALS: BP 111/60
[2019-03-29] MEDS: ESCITALOPRAM OXALATE 10 MG TAB (LEXAPRO) PO SCH (08:25)
[2019-03-29] MEDS: BUPRENORPHINE/NALOXONE 8-2MG SUBLINGUAL TABLET(SUBOXONE) SL SCH (08:25)
[2019-03-29] MEDS: NICOTINE 21MG/24HR 1 EA TRANSDERMAL TD SCH (08:25)
[2019-03-29 16:39] VITALS: BP 103/69
[2019-03-29] MEDS: traZODone 50 MG TAB PO SCH (21:36)
[2019-03-30] MEDS: ESCITALOPRAM OXALATE 10 MG TAB (LEXAPRO) PO SCH (08:23)
[2019-03-30] MEDS: NICOTINE 21MG/24HR 1 EA TRANSDERMAL TD SCH (08:23)
[2019-03-30] MEDS: BUPRENORPHINE/NALOXONE 8-2MG SUBLINGUAL TABLET(SUBOXONE) SL SCH (08:23)
[2019-03-30] MEDS: OLANZapine ORAL DISINTEGRATING TAB 5MG PO PRN (09:27)
--- NOTE | 2019-03-30 14:30 | MHDS ---
DATE OF ADMISSION: 03/21/2019 DATE OF DISCHARGE: 03/30/2019 VITAL SIGNS: Not taken the day of discharge. LABORATORIES: CBC and differential within normal limits. Serum chemistry within normal limits except for elevated chloride at 109. Calcium low at 8.0. test negative. Toxicology screen was positive for amphetamines and cannabinoids. Alcohol screen was negative. DISCHARGE DIAGNOSES: 1. Substance induced mood disorder. 2. Depressive disorder, unspecified. 3. Opiate use disorder. 4. Methamphetamine use disorder. DISCHARGE MEDICATIONS: - Abilify 5 mg daily - trazodone 50 mg at night - Suboxone 8 mg daily - Lexapro 20 mg daily CHIEF COMPLAINT: Suicidal ideation. HISTORY OF PRESENT ILLNESS: This is a 38-year-old white female seen on admission by Dr. Morgan. The patient had just been admitted briefly back in January by Dr. Carson with similar symptoms. The patient did not followup for outpatient referral. She decompensated and she relapsed using methamphetamine and Jyothi bath salts. She felt more depressed, anxious and suicidal with thoughts of overdosing. THe patient was then treated by Dr. Tenorio before being seen by myself. PROGRESS ON THE UNIT: The patient's psychotropics were restarted with some good benefit. She remained irritable and depressed for several days. She was encouraged to become active in the therapeutic milieu. As she cooperated with the treatment program, her mood gradually improved. Suicidal ideation resolved. She was agreeable to referral to inpatient chemical dependency services. The patient was very demanding for higher doses of Suboxone, but this issue was deferred. The patient had difficulty staying here over [place] as she no longer has custody of her children. THe patient's children are currently safely in Child Protective Services (CPS). She hopes to get custody of them back at some point but will obviously need to become clean and sober. MENTAL STATUS EXAMINATION: At the time of discharge: Grooming and hygiene were fairly good. Mood was much improved. She was optimistic about the future. She was not suicidal. No signs of depression at the time of discharge. No signs of michael. The patient denied psychotic symptoms. No signs of paranoia or thought disorder. No signs of cognitive deficits. No signs of impulsivity. ASSESSMENT: The patient's mood appears reasonably stable while she is on appropriate psychotropics and is avoiding controlled substances. Prognosis is good as long as she cooperates with her treatment plan. PLAN: Discharge with transfer to [facility] for chemical dependency services.
== END 2019-03-30 09:50 | DRG 773 ==
LOC: M ED 13:16 → M ED INP 17:55 → M PSY 20:17
PROVIDERS: ADMIT Psychiatry & Neurology Psychiatry; ATTEND Psychiatry & Neurology Psychiatry
DX: F11.24 Opioid dependence with opioid-induced mood disorder (principal); F32.9 Major depressive disorder, single episode, unspecified; F15.20 Other stimulant dependence, uncomplicated; F12.10 Cannabis abuse, uncomplicated; Z91.19 Patient's noncompliance with other medical treatment and regimen; Z63.79 Other stressful life events affecting family and household; F43.21 Adjustment disorder with depressed mood; F16.20 Hallucinogen dependence, uncomplicated

== ENCOUNTER 2019-07-02 16:11 | Inpatient (IN) | payer OTHER ==
[~2019-07-02] VITALS: Ht 152.4 cm; Wt 66.8 kg
[~2019-07-02 16:11] MED LIST changes: +ARIP1TAB4 PO; +[UNRECOGNIZED DRUG - OTHER]
[2019-07-02 16:41] LABS: HEMATOCRIT 41.1 % (36.0-47.0); HEMOGLOBIN 13.9 g/dl (12.0-15.5); MEAN CORPUSCULAR HEMOGLOBIN 29.4 pg (27.0-33.0); MEAN CORPUSCULAR HGB CONC 33.8 g/dl (32.0-36.5); MEAN CORPUSCULAR VOLUME 86.9 fl (80.0-96.0); PLATELET COUNT, AUTOMATED 179 10^3/uL (150-450); RED BLOOD COUNT 4.73 10^6/uL (4.00-5.40); WHITE BLOOD COUNT 7.1 10^3/uL (4.0-10.0)
[2019-07-02] MEDS ORDERED: NICOTINE 21MG/24HR 1 EA TRANSDERMAL TD ONE (16:45)
[2019-07-02 17:10] LABS: HCG, SERUM QUALITATIVE NEGATIVE (NEGATIVE)
[2019-07-02 17:26] LABS: ACETAMINOPHEN LEVEL < 2.0 UG/ML (10.0-30.0); ALBUMIN 3.4 GM/DL (3.2-5.2); ALT/SGPT 105 U/L (12-78); BILIRUBIN,DIRECT < 0.1 MG/DL (0.0-0.2); BILIRUBIN,TOTAL 0.2 MG/DL (0.2-1.0); BLOOD UREA NITROGEN 17 MG/DL (7-18); CALCIUM LEVEL 8.3 MG/DL (8.5-10.1); CARBON DIOXIDE LEVEL 26 MEQ/L (21-32); CHLORIDE LEVEL 109 MEQ/L (98-107); CREATININE FOR GFR 0.64 MG/DL (0.55-1.30); ETHYL ALCOHOL (ETHANOL) < 0.003 % (0.000-0.010); GLOMERULAR FILTRATION RATE > 60.0 (>60); GLUCOSE, FASTING 98 MG/DL (70-100); POTASSIUM SERUM 4.2 MEQ/L (3.5-5.1); SALICYLATE LEVEL < 1.7 MG/DL (5.0-30.0); SODIUM LEVEL 138 MEQ/L (136-145); THYROID STIMULATING HORMONE 0.351 uIU/ML (0.358-3.740); TOTAL PROTEIN 6.5 GM/DL (6.4-8.2)
[2019-07-02 18:28] LABS: AMPHETAMINES LEVEL URINE POSITIVE (NEGATIVE); BARBITURATES URINE NEGATIVE (NEGATIVE); BENZODIAZEPINES URINE NEGATIVE (NEGATIVE); CANNABINOIDS URINE POSITIVE (NEGATIVE); COCAINE METABOLITE URINE NEGATIVE (NEGATIVE); METHADONE URINE NEGATIVE (NEGATIVE); OPIATES URINE NEGATIVE (NEGATIVE); PHENCYCLIDINE URINE NEGATIVE (NEGATIVE)
[2019-07-02] MEDS ORDERED: ACETAMINOPHEN TAB 650MG DOSE (2X325MG) PO PRN (19:00)
[2019-07-02] MEDS ORDERED: MAALOX 30 ML SUSP *UDC PO PRN (19:00)
[2019-07-02] MEDS ORDERED: OLANZapine ORAL DISINTEGRATING TAB 5MG PO PRN (19:00)
[2019-07-02] MEDS ORDERED: MOM 30ML SUSPENSION UDC PO PRN (19:00)
[2019-07-02 20:47] VITALS: BP 120/69
[2019-07-03 06:03] VITALS: BP 131/72
[2019-07-03] MEDS ORDERED: INFLUENZA QUADRIVALENT PF VACCINE 0.5ML SYRINGE (90686) IM ONE (09:00)
[2019-07-03] MEDS: NICOTINE 21MG/24HR 1 EA TRANSDERMAL TD SCH (09:00)
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
[2019-07-03] MEDS ORDERED: BUPRENORPHINE/NALOXONE 8-2MG SUBLINGUAL TABLET(SUBOXONE) SL ONE (11:15)
[2019-07-03] MEDS ORDERED: DOCUSATE SODIUM 100 MG CAP PO PRN (11:15)
[2019-07-03] MEDS ORDERED: ESCITALOPRAM OXALATE 10 MG TAB (LEXAPRO) PO ONE (11:15)
--- NOTE | 2019-07-03 16:48 | HPEPDOC ---
General Date of Admission Jul 02, 2019 at 18:55 Date of Service: Jul 03, 2019 Chief Complaint The patient is a 38-year-old female admitted with a reason for visit of Unspecified Mood Unspecified. History of Present Illness 38 year old female PMHx significant for borderline personality disorder, substance abuse, depression [facility] Patient is awake and alert, denies fever/chills, N/V/D, abdominal pain, shortness of breath, urinary complaints, chest pain/pressure. Home Medications No Active Prescriptions or Reported Meds Allergies Coded Allergies: No Known Allergies (Verified Allergy, Unknown, 03/21/19) Past Medical History Medical History none Surgical History C section x 4 Family History Significant Family History: No pertinent family hx Social History * Smoker: Denies Alcohol: Denies Drugs: denies Recent Travel/Sick Contacts: Reports: Recent travel A-FIB/CHADSVASC A-FIB History Current/History of A-Fib/PAF?: No Review of Systems Constitutional: Denies: Chills, Fever, Night Sweats Eyes: Denies: Pain, Vision change ENT: Denies: Head Aches, Ear Pain, Dysphagia Skin: Denies: Rash, Lesions, Breakdown Pulmonary: Denies: Dyspnea, Cough Cardiovascular: Denies: Chest Pain, Palpitations, Orthopnea, Paroxysmal Noc. Dyspnea, Lt Headedness Gastrointestinal: Denies: Nausea, Vomiting, Abdominal Pain, Diarrhea Genitourinary: Denies: Dysuria, Frequency, Incontinence, Retention Hematologic: Denies: Bruising, Bleeding Excessively Musculoskeletal: Denies: Neck Pain, Back Pain, Joint Pain, Muscle Pain, Spasms Neurological: Denies: Weakness, Numbness, Change in speech, Confusion Psych: Reports: Mood Normal; Denies: Depression, Memory Issues Physical Examination General Exam: Positive: Alert, No Acute Distress Eye Exam: Positive: PERRLA, Conjunctiva & lids normal, EOMI; Negative: Sclera icteric ENT Exam: Positive: Atraumatic, Mucous membr. moist/pink, Pharynx Normal Neck Exam: Positive: Supple; Negative: JVD, thyromegaly Chest Exam: Positive: Clear to auscultation, Normal air movement Heart Exam: Positive: Rate Normal, Regular Rhythm, Normal S1, Normal S2; Negative: Murmurs, Rubs Telemetry: Positive: No significant arrhythmia Abdomen Exam: Positive: Normal bowel sounds, Soft; Negative: Tenderness, Hepatospenomegaly Extremity Exam: Positive: Normal pulses; Negative: Clubbing, Cyanosis, Edema Skin Exam: Positive: Nl turgor and temperature; Negative: Breakdown, Lesion Neuro Exam: Positive: Normal Gait, Normal Speech, Cranial Nerves 3-12 NL, Reflexes 2+ Psych Exam: Positive: Mental status NL, Mood NL, Oriented x 3 Vital Signs Vital Signs Date Time Temp Pulse Resp B/P (MAP) Pulse Ox O2 Delivery O2 Flow Rate FiO2 07/03/19 06:03 98.8 82 16 131/72 (91) 99 Room Air Laboratory Data Labs 24H Laboratory Tests 2 07/02/19 17:48: Urine Opiates Screen NEGATIVE, Urine Methadone Screen NEGATIVE, Urine Barbiturates Screen NEGATIVE, Urine Phencyclidine Screen NEGATIVE, Urine Amphetamines Screen POSITIVEH, Urine Benzodiazepines Screen NEGATIVE, Urine Cocaine Metabolite Screen NEGATIVE, Urine Cannabinoids Screen POSITIVEH Assessment/Plan 1. tobacco use - nicotine patch. 2. borderline personality disorder/depression/suicidal thoughts - management as per psychiatry. - abilify, lexapro, atarax prn. 3. heroine abuse - suboxone. Thank you for this consultation, we will sign off for now, please reconsult as needed. Plan / VTE VTE Prophylaxis Ordered?: No SPRING PEREZ MD Jul 03, 2019 16:48
[2019-07-03 18:18] VITALS: BP 126/74
[2019-07-03] MEDS: traZODone 50 MG TAB PO PRN (21:37)
[2019-07-03] MEDS: ARIPiprazole 2 MG TAB PO SCH (21:37)
[2019-07-04 06:14] VITALS: BP 111/62
[2019-07-04] MEDS: BUPRENORPHINE/NALOXONE 8-2MG SUBLINGUAL TABLET(SUBOXONE) SL SCH (08:23)
[2019-07-04] MEDS: ESCITALOPRAM OXALATE 10 MG TAB (LEXAPRO) PO SCH (08:23)
[2019-07-04] MEDS: NICOTINE 21MG/24HR 1 EA TRANSDERMAL TD SCH (08:23)
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
[2019-07-04] MEDS: hydrOXYzine 50 MG TAB PO PRN (15:27)
[2019-07-04 16:15] VITALS: BP 110/57
[2019-07-04] MEDS: ARIPiprazole 2 MG TAB PO SCH (20:35)
[2019-07-04] MEDS: traZODone 50 MG TAB PO PRN (20:35)
[2019-07-05 06:17] VITALS: BP 124/61
[2019-07-05] MEDS: ESCITALOPRAM OXALATE 10 MG TAB (LEXAPRO) PO SCH (08:03)
[2019-07-05] MEDS: NICOTINE 21MG/24HR 1 EA TRANSDERMAL TD SCH (08:03)
[2019-07-05] MEDS: BUPRENORPHINE/NALOXONE 8-2MG SUBLINGUAL TABLET(SUBOXONE) SL SCH (08:48)
[2019-07-05] MEDS: busPIRone 10 MG TAB PO SCH (16:09)
[2019-07-05 16:14] VITALS: BP 120/58
[2019-07-05] MEDS: hydrOXYzine 50 MG TAB PO PRN (17:25)
[2019-07-05] MEDS: traZODone 50 MG TAB PO PRN (21:05)
[2019-07-05] MEDS: ARIPiprazole 2 MG TAB PO SCH (21:05)
--- NOTE | 2019-07-05 21:33 | MHIPN ---
DATE: 07/05/2019 This is a telemedicine video followup. She is seen in the presence of staff. VITAL SIGNS: Blood pressure 120/58, pulse 77, temperature 98.6. CHIEF COMPLAINT: Feels a bit tired. SUBJECTIVE: She is seen for followup. Says feels a bit tired but has been sleeping better. Appetite is improved. Moods are better, less anxious, worried about matters on the outside, but says overall better. MENTAL STATUS EXAMINATION: Fair hygiene. She is cooperative. There is no agitation. No psychomotor retardation. Affect is somewhat restricted but reactive. Vague on suicidal thoughts, no firm plans. No homicidal ideas or intents. No evidence of any psychosis. Cognition is grossly intact. Judgment and insight are questionable, but possibly somewhat improved. ASSESSMENT: 1. Unspecified depressive disorder. 2. Methamphetamine use. 3. Hallucinogen use disorder. 4. Opioid use disorder. She is clinically somewhat improved, less depressed but remains anxious. PLAN: Continue current care and current medications. We will look at obtaining collateral information. Encourage participation in activities in the unit. Further recommendations will be made when she sees the psychiatrist tomorrow. The assessment took 15 minutes.
[2019-07-06 06:00] VITALS: BP 102/58
[2019-07-06] MEDS: busPIRone 10 MG TAB PO SCH (09:00)
[2019-07-06] MEDS: NICOTINE 21MG/24HR 1 EA TRANSDERMAL TD SCH (09:00)
[2019-07-06] MEDS: BUPRENORPHINE/NALOXONE 8-2MG SUBLINGUAL TABLET(SUBOXONE) SL SCH (09:00)
[2019-07-06] MEDS: ESCITALOPRAM OXALATE 10 MG TAB (LEXAPRO) PO SCH (09:00)
--- NOTE | 2019-07-06 10:00 | MHIPNPDOC ---
[facility] [place] Progress Note Progress Note Inpatient Progress Note Jacklyn Camara MRN: N/A Date of : N/A Date of Service: 07/06/2019 History of Present Illness The patient a 38-year-old woman presented to [facility] after relapsing on heroin and reporting that she had suicidal thoughts of going to overdose on heroin. She reported that she had left rehab, but found that her children were going to be putting the [facility] care where she became more despondent and depressed and began to relapse on her heroin. She reported that she had continued to use until she had suicidal thoughts where she self-presented for treatment. She reports no changes in her psychiatric symptoms other than these aforementioned and other than the CPS, no social history. Her medical and psychosocial information updated as appropriate with the patient. Interval History The patient is met with today, she reports that she is doing somewhat better but still has some low mood, she reports she feels still irritable with some cravings. She reports she is tolerating her medications well without any major side effects. She has attended groups and has been social from the unit. She asks for another day in order to try to cope with her cravings, stating that her Suboxone is enough, asking if she could have her dose split into two. She otherwise has had no behavioral problems over the weekend. Review Of Systems General: Denies fever or appetite changes Cardiovascular: Denies Chest pain or palpations GI: Denies Nausea, vomiting, or bowel changes Respiratory: Denies shortness of breath or cough Neuro: Denies dizziness, tremors Derm: Denies any rashes or pruritus : Denies any dysuria or urinary problems MSK: Denies any muscle tightness or stiffness HEENT: Denies any vision changes or headaches Psychotherapy None on this visit. Vital Signs Reviewed. Mental Status Examination General: Well dressed with good hygiene Speech: Spontaneous and fluid Thought processes: Linear and logical MSK: Smooth and coordinated gait, no signs of tremors or involuntary orofacial movements Thought content: Future orientated Abstract reasoning, and computation: Intact Description of associations: Intact Description of abnormal or psychotic thoughts: Denies any suicidal or homicidal ideation. Denies any auditory or visual hallucinations. Does not appear to be responding to internal stimuli. Does not appear to be endorsing any bizarre or paranoid ideation. Judgment: fair Insight: fair Orientation: Alert and orientated 3 Cognition: Grossly normal Recent and remote memory: Intact Attention span and concentration: Intact Fund of knowledge: Adequate Mood: "okay" Affect: Euthymic with a full range Diagnoses Unspecified impulse/conduct disorder Unspecified depressive disorder Methamphetamine use disorder, severe Hallucinogen use disorder, severe Opioid use disorder, severe Tobacco use disorder, severe Borderline personality disorder Assessment and Plan Unspecified impulse/conduct disorder/depressive disorder: Continue home Lexapro and Abilify 2, holding BuSpar. Opioid use disorder: Split Suboxone to 4 mg BID starting tomorrow. Tobacco use disorder: Nicotine patch offered. Polysubstance use disorder: CIWA protocol started. Borderline personality disorder: Monitor for disruptive behavior, conversion to involuntary status. Disposition Discharged tomorrow if clinically improving, concern for secondary gain. Time Spent 15 minutes. Saturday Vital Signs Vital Signs Date Time Temp Pulse Resp B/P (MAP) Pulse Ox O2 Delivery O2 Flow Rate FiO2 07/06/19 06:00 97.7 61 16 102/58 (73) 98 Room Air Current Medications Current Medications Medications (Trade) Dose Ordered Sig/Allen Route PRN Reason Start Time Stop Time Status Last Admin Dose Admin Acetaminophen (Tylenol Tab) 650 mg Q6HP PRN PO HEADACHE or DISCOMFORT 07/02/19 19:00 Al Hydrox/Mg Hydrox/Simethicone (Mylanta) 30 ml Q4HP PRN PO HEARTBURN/INDIGESTION 07/02/19 19:00 Aripiprazole (AbiLIFY) 2 mg QHS PO 07/03/19 21:00 07/05/19 21:05 Buprenorphine/ Naloxone (Suboxone 8/2mg) 1 tab DAILY SL 07/04/19 09:00 07/06/19 09:00 Buspirone HCl (Buspar) 10 mg DAILY PO 07/05/19 09:00 07/06/19 09:00 Docusate Sodium (Colace) 100 mg Q12HP PRN PO CONSTIPATION 07/03/19 11:15 Escitalopram Oxalate (Lexapro) 20 mg DAILY PO 07/04/19 09:00 07/06/19 09:00 Home Med (Med Rec Complete!) ASDIRECTED XX 07/02/19 18:45 07/02/19 18:40 DC Hydroxyzine HCl (Atarax) 50 mg Q4HP PRN PO anxiety 07/03/19 11:15 07/05/19 17:25 Magnesium Hydroxide (Milk Of Magnesia) 30 ml DAILYPRN PRN PO CONSTIPATION 07/02/19 19:00 Nicotine (Nicoderm Cq 21mg) 1 patch DAILY TD 07/03/19 09:00 07/06/19 09:00 Olanzapine (ZyPREXA ZYDIS) 5 mg Q6HP PRN PO ANXIETY/AGITATION 07/02/19 19:00 07/03/19 10:26 Trazodone HCl (Desyrel) 50 mg QHSP PRN PO INSOMNIA 07/02/19 19:00 07/05/19 21:05 Allergies Coded Allergies: No Known Allergies (Verified Allergy, Unknown, 03/21/19) JAEL CAMARILLO DO Jul 06, 2019 10:00
[2019-07-06] MEDS ORDERED: PILL CUTTER 1 EACH XX PRN (10:15)
[2019-07-06 18:55] VITALS: BP 130/83
[2019-07-06] MEDS: traZODone 50 MG TAB PO PRN (20:27)
[2019-07-07 05:59] VITALS: BP 104/68
[2019-07-07] MEDS ORDERED: BUPRENORPHINE/NALOXONE 8-2MG SUBLINGUAL TABLET(SUBOXONE) SL SCH (08:00)
[2019-07-07] MEDS: NICOTINE 21MG/24HR 1 EA TRANSDERMAL TD SCH (08:05)
[2019-07-07] MEDS: busPIRone 10 MG TAB PO SCH (08:48)
[2019-07-07] MEDS: ESCITALOPRAM OXALATE 10 MG TAB (LEXAPRO) PO SCH (08:48)
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
[2019-07-07] MEDS ORDERED: BUPR1SUB5 SL (09:12)
[2019-07-07] MEDS ORDERED: BUSP10TA PO (09:12)
[2019-07-07] MEDS ORDERED: NICO21PAT TD (09:12)
[2019-07-07] MEDS ORDERED: ESCI10TA2 PO (09:12)
[2019-07-07] MEDS ORDERED: HYDR50TA70 PO (09:12)
[2019-07-07] MEDS ORDERED: ABIL1TAB11 PO (09:12)
== END 2019-07-07 13:02 | disposition home or self-care (01) | DRG 758 ==
LOC: M ED 16:11 → M ED INP 18:55 → M PSY 20:30
PROVIDERS: ADMIT Psychiatry & Neurology Psychiatry; ATTEND Psychiatry & Neurology Addiction Medicine
DX: F63.9 Impulse disorder, unspecified (principal); F11.20 Opioid dependence, uncomplicated; F15.20 Other stimulant dependence, uncomplicated; F16.20 Hallucinogen dependence, uncomplicated; F32.9 Major depressive disorder, single episode, unspecified; F17.200 Nicotine dependence, unspecified, uncomplicated; F60.3 Borderline personality disorder

== ENCOUNTER 2019-09-24 18:27 | Emergency (ER) | payer OTHER ==
[~2019-09-24] VITALS: Ht 152.4 cm; Wt 59.1 kg
[~2019-09-24 18:27] MED LIST changes: +ABIL1TAB11 PO; +BUPR1SUB5 SL; +BUSP10TA PO; +ESCI10TA2 PO; +HYDR50TA70 PO
[2019-09-24 21:01] LABS: BASO % 0.7 % (0.0-1.0); EOS % 0.7 % (0.0-3.0); HEMATOCRIT 41.6 % (36.0-47.0); HEMOGLOBIN 13.6 g/dl (12.0-15.5); LYMPH # 1.5 10^3/uL (1.5-5.0); LYMPH % 23.9 % (24.0-44.0); MEAN CORPUSCULAR HEMOGLOBIN 29.2 pg (27.0-33.0); MEAN CORPUSCULAR HGB CONC 32.7 g/dl (32.0-36.5); MEAN CORPUSCULAR VOLUME 89.5 fl (80.0-96.0); MONO # 0.4 10^3/uL (0.0-0.8); MONO % 6.6 % (0.0-5.0); NEUTROPHILS # 4.1 10^3/uL (1.5-8.5); NEUTROPHILS % 67.6 % (36.0-66.0); PLATELET COUNT, AUTOMATED 188 10^3/uL (150-450); RED BLOOD COUNT 4.65 10^6/uL (4.00-5.40); WHITE BLOOD COUNT 6.1 10^3/uL (4.0-10.0)
[2019-09-24 21:45] LABS: ERYTHROCYTE SEDIMENTATION RATE 11 mm/hr (0-20)
[2019-09-24] MEDS ORDERED: DALBAVANCIN 1,500 MG in D5W 250 ML IV ONE (22:00)
[2019-09-24 22:32] VITALS: BP 135/87
== END 2019-09-24 22:47 | disposition home or self-care (01) ==
LOC: EEVIPCON 18:27 → M ED 18:27
DX: L02.414 Cutaneous abscess of left upper limb (principal); F17.210 Nicotine dependence, cigarettes, uncomplicated; F19.99 Other psychoactive substance use, unspecified with unspecified psychoactive substance-induced disorder; F31.81 Bipolar II disorder; F90.9 Attention-deficit hyperactivity disorder, unspecified type; F43.10 Post-traumatic stress disorder, unspecified; Z79.899 Other long term (current) drug therapy
CPT/HCPCS: 36415; 80047; 85025; 85652; 86140; 87070; 87077; 87186; 87205; 96365; 99283; J0875

== ENCOUNTER 2019-10-10 12:04 | Emergency (ER) | payer OTHER ==
[~2019-10-10] VITALS: Ht 152.4 cm; Wt 60.0 kg
[2019-10-10 12:55] LABS: HEMATOCRIT 42.9 % (36.0-47.0); HEMOGLOBIN 14.4 g/dl (12.0-15.5); MEAN CORPUSCULAR HGB CONC 33.6 g/dl (32.0-36.5); MEAN CORPUSCULAR VOLUME 89.4 fl (80.0-96.0); PLATELET COUNT, AUTOMATED 180 10^3/uL (150-450)
[2019-10-10] MEDS ORDERED: hydrOXYzine 25 MG TAB PO ONE (13:00)
[2019-10-10 13:23] LABS: HCG, SERUM QUALITATIVE NEGATIVE (NEGATIVE)
[2019-10-10 13:35] LABS: ACETAMINOPHEN LEVEL < 2.0 UG/ML (10.0-30.0); ALBUMIN 3.5 GM/DL (3.2-5.2); ALT/SGPT 25 U/L (12-78); BILIRUBIN,DIRECT 0.1 MG/DL (0.0-0.2); BILIRUBIN,TOTAL 0.2 MG/DL (0.2-1.0); BLOOD UREA NITROGEN 10 MG/DL (7-18); CALCIUM LEVEL 8.4 MG/DL (8.5-10.1); CARBON DIOXIDE LEVEL 27 MEQ/L (21-32); CHLORIDE LEVEL 106 MEQ/L (98-107); CREATININE FOR GFR 0.79 MG/DL (0.55-1.30); ETHYL ALCOHOL (ETHANOL) < 0.003 % (0.000-0.010); GLOMERULAR FILTRATION RATE > 60.0 (>60); GLUCOSE, FASTING 100 MG/DL (70-100); POTASSIUM SERUM 3.8 MEQ/L (3.5-5.1); SALICYLATE LEVEL < 1.7 MG/DL (5.0-30.0); SODIUM LEVEL 139 MEQ/L (136-145); THYROID STIMULATING HORMONE 0.372 uIU/ML (0.358-3.740); TOTAL PROTEIN 7.5 GM/DL (6.4-8.2)
[2019-10-10 14:13] LABS: AMPHETAMINES LEVEL URINE NEGATIVE (NEGATIVE); BARBITURATES URINE NEGATIVE (NEGATIVE); BENZODIAZEPINES URINE NEGATIVE (NEGATIVE); CANNABINOIDS URINE NEGATIVE (NEGATIVE); COCAINE METABOLITE URINE NEGATIVE (NEGATIVE); METHADONE URINE NEGATIVE (NEGATIVE); OPIATES URINE NEGATIVE (NEGATIVE); PHENCYCLIDINE URINE NEGATIVE (NEGATIVE)
[2019-10-10] MEDS ORDERED: NICOTINE 21MG/24HR 1 EA TRANSDERMAL TD ONE (15:45)
--- NOTE | 2019-10-10 18:52 | ECGEPIP ---
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
[2019-10-10] MEDS ORDERED: BUSP10TA PO (20:28)
[2019-10-10] MEDS ORDERED: BUPR1SUB5 SL (20:28)
[2019-10-10] MEDS ORDERED: NICO1KIT TOP (20:28)
[2019-10-10] MEDS ORDERED: ESCI20TA PO (20:28)
[2019-10-10] MEDS ORDERED: ABIL1TAB11 PO (20:28)
[2019-10-10] MEDS ORDERED: HYDR1TAB33 PO (20:28)
[2019-10-10] MEDS ORDERED: PATIENT COMMENTS (20:30)
[2019-10-11] MEDS ORDERED: NICOTINE 21MG/24HR 1 EA TRANSDERMAL TD ONE (08:00)
[2019-10-11] MEDS ORDERED: hydrOXYzine 25 MG TAB PO STA (09:21)
--- NOTE | 2019-10-11 15:28 | ED PDOC ---
Provider Note Mariama is seen for face to face evaulation, reviewed PSA evaluation and previously have treated patient on IMU. She recently relapsed and states she accidentally overdosed, she reports that she had been depressed about this and came in with some SI, that has since resolved since she had some suboxone improving her mood and wants to be discharged. She recently came out of inpatient rehab. She denies any suicidal thoughts or auditory hallucinations at this time. Allergies:She does not have any allergies to medications. FAMILY HISTORY: Mariama denies any family history of mental health issues. Past Psych: reviewed psa notes Objective Appearance: Well nourished. Well groomed. Speech: Normal volume. Normal rate. Spontaneous and fluid. Thought Form: Linear and goal directed. Thought Content: Mildly anxious secondary to withdrawal. No evidence of delus ions. No evidence of aggressive or homicidal ideation. No thoughts of self harm. No evidence of suicidal ideation. Judgement: intact as evidenced by decision making in the recent past. Insight: good insight into symptoms and treatment options. Assessment F11.93 Opioid use, unspecified with withdrawal Plan Prescribed Suboxone 4 mg 7-day supply. Re-establish with [facility] for outpatient opioid treatment. The patient at the time of discharge did not meet criteria for involuntary admission/extension due to having a normal mental status exam, fair insight into the situation, They are engaged in the discharge process, as well as being fri endly and amenable in behavioral control and havent been engaging in any observed concerning behavior or ideation recently. They decline voluntary extension/admission at this time and must be discharged in good guille, as Im unable to make a case for holding the patient against their will. They may have historical risk factors of admissions and other interactions with psychiatry h owever, those are not modifiable from a clinical perspective. The patient will need to be discharged in good guille. Discharged to home after safety plan completed. JAEL CAMARILLO DO Oct 11, 2019 15:28
[2019-10-11] MEDS ORDERED: SUBO4MIS SL (16:41)
[2019-10-11] MEDS ORDERED: BUPRENORPHINE/NALOXONE 2-0.5MG SUBLINGUAL TABLET(SUBOXONE) SL ONE (16:45)
[2019-10-11] MEDS ORDERED: BUPRENORPHINE/NALOXONE 8-2MG SUBLINGUAL TABLET(SUBOXONE) SL ONE (17:00)
[2019-10-11 17:20] VITALS: BP 155/90
[2019-10-12] MEDS ORDERED: BUPRENORPHINE/NALOXONE 8-2MG SUBLINGUAL TABLET(SUBOXONE) SL SCH (09:00)
== END 2019-10-11 17:23 | disposition home or self-care (01) ==
LOC: M ED 12:04
DX: F32.9 Major depressive disorder, single episode, unspecified (principal); F11.10 Opioid abuse, uncomplicated; F17.200 Nicotine dependence, unspecified, uncomplicated; Z79.899 Other long term (current) drug therapy
CPT/HCPCS: 80048; 80076; 80307; 84443; 84703; 85027; 93005; 99284; G0480

== ENCOUNTER 2020-03-14 12:47 | Emergency (ER) | payer OTHER ==
[~2020-03-14] VITALS: Ht 152.4 cm; Wt 62.7 kg
[2020-03-14 12:47] VITALS: BP 139/85
[~2020-03-14 12:47] MED LIST changes: +ESCI20TA PO; +HYDR1TAB33 PO; +NICO1KIT TOP; +PATIENT COMMENTS; +SUBO4MIS SL
[2020-03-14] MEDS ORDERED: BACT800T5 PO (14:04)
[2020-03-14] MEDS ORDERED: IBUP-1022 PO (14:04)
== END 2020-03-14 14:14 | disposition home or self-care (01) ==
LOC: M ED 12:47
DX: L03.113 Cellulitis of right upper limb (principal); F11.20 Opioid dependence, uncomplicated

== ENCOUNTER 2020-03-20 05:09 | Inpatient (IN) | payer OTHER ==
[2020-03-20] VITALS (7 sets, daily range): BP systolic 95–103; BP diastolic 59–70
[~2020-03-20] VITALS: Ht 152.4 cm; Wt 61.4 kg
[~2020-03-20 05:09] MED LIST changes: +BACT800T5 PO; +ESCI10TA16 PO; -ESCI10TA2 PO; -ESCI20TA PO; +ESCI20TA16 PO; +IBUP-1022 PO
[2020-03-20] MEDS ORDERED: PIPERACILLIN/TAZOBACTAM SOD 4.5 GM in D5W MINI-BAG PLUS 50 ML IV ONE (06:15)
[2020-03-20] MEDS ORDERED: MORPHINE 4 MG/ML 1ML VIAL/SYRINGE (J2270) IV ONE ×2 (06:15→12:15)
[2020-03-20] MEDS ORDERED: ONDANSETRON 4MG/2ML VIAL IV ONE (06:15)
[2020-03-20 06:35] LABS: BASO # 0.1 10^3/uL (0.0-0.2); BASO % 0.5 % (0.0-1.0); EOS # 0.1 10^3/uL (0.0-0.5); EOS % 1.1 % (0.0-3.0); HEMATOCRIT 34.4 % (36.0-47.0); HEMOGLOBIN 11.1 g/dl (12.0-15.5); LYMPH # 1.4 10^3/uL (1.5-5.0); LYMPH % 12.8 % (24.0-44.0); MEAN CORPUSCULAR HEMOGLOBIN 28.5 pg (27.0-33.0); MEAN CORPUSCULAR HGB CONC 32.3 g/dl (32.0-36.5); MEAN CORPUSCULAR VOLUME 88.4 fl (80.0-96.0); MONO # 0.9 10^3/uL (0.0-0.8); MONO % 8.3 % (0.0-5.0); NEUTROPHILS # 8.2 10^3/uL (1.5-8.5); NEUTROPHILS % 76.1 % (36.0-66.0); PLATELET COUNT, AUTOMATED 229 10^3/uL (150-450); RED BLOOD COUNT 3.89 10^6/uL (4.00-5.40); WHITE BLOOD COUNT 10.7 10^3/uL (4.0-10.0)
[2020-03-20] MEDS ORDERED: BACT800T5 PO (06:47)
[2020-03-20] MEDS ORDERED: IBUP1TAB6 PO (06:47)
--- NOTE | 2020-03-20 06:50 | REPVR ---
PROCEDURE INFORMATION: Exam: US Duplex Right Upper Extremity Veins, Limited Exam date and time: 03/20/2020 6:15 AM Age: 39 years old Clinical indication: Arm, upper; Right; Patient HX: Patient is iv drug user, states that she tried to shot up last week and missed and has been having increased swelling and pain since then; Additional info: Right arm swelling/pain TECHNIQUE: Imaging protocol: Real-time Duplex ultrasound of the Right Upper Extremity with 2-D rivera scale, color Doppler flow and spectral waveform analysis with image documentation. Limited exam focused on the right upper extremity veins. COMPARISON: No relevant prior studies available. FINDINGS: Right arm veins: The right jugular, subclavian, axillary and cephalic veins are patent, compressible with flow seen within them. The right basilic and brachial veins could not be evaluated due to patient's inability to roll his arm due to pain. Soft tissues: Right upper extremity subcutaneous edema with a large complex heterogeneous collection seen measuring more than 5.0 x 4.0 x 2.1 cm extending from the level of the mid biceps to the antecubital fossa. IMPRESSION: 1. No DVT in the right jugular, subclavian, axillary or cephalic veins. 2. Right basilic and brachial veins were not evaluated. 3. Right upper extremity subcutaneous edema with a large complex collection extending from the mid biceps to the antecubital fossa measuring more than 5.0 x 4.0 x 2.1 cm which could represent a hematoma or an abscess. Electronically signed by: Shaheen Smalls On 03/20/2020 06:50:25 AM
[2020-03-20 07:02] LABS: ALBUMIN 2.3 GM/DL (3.2-5.2); ALT/SGPT 50 U/L (12-78); BILIRUBIN,DIRECT 0.1 MG/DL (0.0-0.2); BILIRUBIN,TOTAL 0.2 MG/DL (0.2-1.0); BLOOD UREA NITROGEN 15 MG/DL (7-18); CALCIUM LEVEL 7.9 MG/DL (8.5-10.1); CARBON DIOXIDE LEVEL 27 MEQ/L (21-32); CHLORIDE LEVEL 105 MEQ/L (98-107); CREATININE FOR GFR 0.46 MG/DL (0.55-1.30); GLOMERULAR FILTRATION RATE > 60.0 (>58); GLUCOSE, FASTING 110 MG/DL (70-100); POTASSIUM SERUM 3.7 MEQ/L (3.5-5.1); SODIUM LEVEL 138 MEQ/L (136-145); TOTAL PROTEIN 6.1 GM/DL (6.4-8.2)
[2020-03-20 07:08] LABS: RSV AMPLIFICATION NEGATIVE (NEGATIVE)
[2020-03-20] MEDS ORDERED: NS 1,000 ML IV ONE (07:30)
--- NOTE | 2020-03-20 07:59 | REP ---
INDICATION: abscess to arm COMPARISON: None. TECHNIQUE: Portable AP view of the chest FINDINGS: The mediastinum and cardiac silhouette are stable and within normal limits for portable technique. The lung holley are clear without acute consolidation, effusion, or pneumothorax. Skeletal structures are intact. IMPRESSION: No acute cardiopulmonary process appreciated. <Electronically signed by Eulalio Barry > 03/20/20 [id number]
[2020-03-20] MEDS ORDERED: MORPHINE 4 MG/ML 1ML VIAL/SYRINGE (J2270) As Ordered ONE (12:11)
[2020-03-20] MEDS ORDERED: dexameTHASONE 4 MG/ML 1ML VIAL (J1100 PER 1MG) As Ordered ONE (12:39)
[2020-03-20] MEDS ORDERED: LIDOCAINE 2% 100MG/5ML SDV (FOR ANES.) As Ordered ONE (12:39)
[2020-03-20] MEDS ORDERED: fentaNYL 100 MCG/2 ML INJECTION (J3010) As Ordered ONE (12:39)
[2020-03-20] MEDS ORDERED: propofoL 200 MG/20 ML VIAL As Ordered ONE (12:39)
[2020-03-20] MEDS ORDERED: MIDAZOLAM INJ 2MG/2ML VIAL (J2250 PER 1MG) As Ordered ONE (12:39)
[2020-03-20] MEDS ORDERED: ONDANSETRON 4MG/2ML VIAL As Ordered ONE (12:40)
[2020-03-20] MEDS ORDERED: VASOPRESSIN INJ 20 UNITS/ML VIAL As Ordered ONE (13:21)
[2020-03-20] MEDS ORDERED: BUPIVACAINE HCL 0.25% 10ML VIAL As Ordered ONE (13:30)
[2020-03-20] MEDS ORDERED: LIDOCAINE W/EPINEPHRINE 1% 20ML VIAL As Ordered ONE (13:30)
[2020-03-20] MEDS ORDERED: SILVER NITRATE APPLICATOR As Ordered ONE (13:44)
[2020-03-20] MEDS ORDERED: MORPHINE 2 MG/ML 1ML VIAL (J2270) IV PRN (14:00)
[2020-03-20] MEDS ORDERED: ONDANSETRON 4 MG TAB PO PRN (14:00)
[2020-03-20] MEDS ORDERED: PERCOCET 5MG/325MG TAB PO PRN (14:30)
[2020-03-20] MEDS ORDERED: LR 1,000 ML IV SCH (14:30)
[2020-03-20] MEDS ORDERED: METOCLOPRAMIDE INJ 10MG/2ML VIAL (J2765 PER 1) IV PRN (14:30)
[2020-03-20] MEDS ORDERED: fentaNYL 100 MCG/2 ML INJECTION (J3010) IV PRN (14:30)
[2020-03-20] MEDS ORDERED: ONDANSETRON 4MG/2ML VIAL IV PRN (14:30)
[2020-03-20] MEDS: KETOROLAC 30 MG/ML 1ML VIAL IV SCH ×2 (15:00→21:10)
[2020-03-20] MEDS: PIPERACILLIN/TAZOBACTAM SOD 3.375 GM in D5W MINI-BAG PLUS 50 ML IV SCH ×2 (15:45→21:09)
[2020-03-20] MEDS: NS 1,000 ML IV SCH (15:45)
[2020-03-20] MEDS ORDERED: HYDROmorphone HCL 2 MG/ML 1ML VIAL (J1170) As Ordered ONE (16:00)
[2020-03-21] MEDS: NS 1,000 ML IV SCH ×3 (01:52→13:59)
[2020-03-21] MEDS: PIPERACILLIN/TAZOBACTAM SOD 3.375 GM in D5W MINI-BAG PLUS 50 ML IV SCH ×4 (01:52→20:35)
[2020-03-21 02:00] VITALS: BP 97/57
[2020-03-21] MEDS: KETOROLAC 30 MG/ML 1ML VIAL IV SCH ×4 (03:03→20:35)
[2020-03-21 06:00] VITALS: BP 105/66
[2020-03-21 06:58] LABS: HEMATOCRIT 31.9 % (36.0-47.0); HEMOGLOBIN 10.3 g/dl (12.0-15.5); MEAN CORPUSCULAR HEMOGLOBIN 28.7 pg (27.0-33.0); MEAN CORPUSCULAR HGB CONC 32.3 g/dl (32.0-36.5); MEAN CORPUSCULAR VOLUME 88.9 fl (80.0-96.0); PLATELET COUNT, AUTOMATED 239 10^3/uL (150-450); RED BLOOD COUNT 3.59 10^6/uL (4.00-5.40); WHITE BLOOD COUNT 14.1 10^3/uL (4.0-10.0)
[2020-03-21 07:26] LABS: BLOOD UREA NITROGEN 13 MG/DL (7-18); CALCIUM LEVEL 7.7 MG/DL (8.5-10.1); CARBON DIOXIDE LEVEL 26 MEQ/L (21-32); CHLORIDE LEVEL 107 MEQ/L (98-107); CREATININE FOR GFR 0.52 MG/DL (0.55-1.30); GLOMERULAR FILTRATION RATE > 60.0 (>58); GLUCOSE, FASTING 105 MG/DL (70-100); POTASSIUM SERUM 4.2 MEQ/L (3.5-5.1); SODIUM LEVEL 140 MEQ/L (136-145)
[2020-03-21] MEDS: PANTOPRAZOLE 40MG TAB (PROTONIX) PO SCH (08:24)
[2020-03-21 10:00] VITALS: BP 104/64
[2020-03-21 14:00] VITALS: BP 110/67
[2020-03-21] MEDS: MORPHINE 2 MG/ML 1ML VIAL (J2270) IV PRN ×2 (15:58→22:00)
[2020-03-21 18:00] VITALS: BP 111/69
[2020-03-21 22:00] VITALS: BP 109/69
[2020-03-22 02:00] VITALS: BP 122/78
[2020-03-22] MEDS: PIPERACILLIN/TAZOBACTAM SOD 3.375 GM in D5W MINI-BAG PLUS 50 ML IV SCH ×4 (02:37→21:34)
[2020-03-22] MEDS: KETOROLAC 30 MG/ML 1ML VIAL IV SCH ×4 (02:37→21:34)
[2020-03-22 06:00] VITALS: BP 124/82
[2020-03-22] MEDS: MORPHINE 2 MG/ML 1ML VIAL (J2270) IV PRN ×3 (07:43→16:52)
[2020-03-22 07:59] LABS: HEMATOCRIT 32.9 % (36.0-47.0); HEMOGLOBIN 10.4 g/dl (12.0-15.5); MEAN CORPUSCULAR HGB CONC 31.6 g/dl (32.0-36.5); MEAN CORPUSCULAR VOLUME 91.6 fl (80.0-96.0); PLATELET COUNT, AUTOMATED 255 10^3/uL (150-450); RED BLOOD COUNT 3.59 10^6/uL (4.00-5.40); WHITE BLOOD COUNT 7.8 10^3/uL (4.0-10.0)
[2020-03-22 08:24] LABS: BLOOD UREA NITROGEN 20 MG/DL (7-18); CALCIUM LEVEL 7.6 MG/DL (8.5-10.1); CARBON DIOXIDE LEVEL 27 MEQ/L (21-32); CHLORIDE LEVEL 108 MEQ/L (98-107); CREATININE FOR GFR 0.57 MG/DL (0.55-1.30); GLOMERULAR FILTRATION RATE > 60.0 (>58); GLUCOSE, FASTING 87 MG/DL (70-100); POTASSIUM SERUM 4.5 MEQ/L (3.5-5.1); SODIUM LEVEL 141 MEQ/L (136-145)
[2020-03-22] MEDS: PANTOPRAZOLE 40MG TAB (PROTONIX) PO SCH (09:31)
[2020-03-22 10:00] VITALS: BP 128/83
[2020-03-22 14:00] VITALS: BP 126/83
[2020-03-22] MEDS: PERCOCET 5MG/325MG TAB PO PRN (17:19)
[2020-03-22 18:00] VITALS: BP 136/83
[2020-03-22 22:00] VITALS: BP 128/81
[2020-03-23 02:00] VITALS: BP 131/93
[2020-03-23] MEDS: PIPERACILLIN/TAZOBACTAM SOD 3.375 GM in D5W MINI-BAG PLUS 50 ML IV SCH ×3 (02:11→13:18)
[2020-03-23] MEDS: KETOROLAC 30 MG/ML 1ML VIAL IV SCH ×4 (02:12→22:48)
[2020-03-23] MEDS: MORPHINE 2 MG/ML 1ML VIAL (J2270) IV PRN ×2 (02:12→13:18)
[2020-03-23 06:00] VITALS: BP 133/93
[2020-03-23 06:49] LABS: HEMATOCRIT 33.4 % (36.0-47.0); HEMOGLOBIN 10.9 g/dl (12.0-15.5); MEAN CORPUSCULAR HGB CONC 32.6 g/dl (32.0-36.5); MEAN CORPUSCULAR VOLUME 88.8 fl (80.0-96.0); PLATELET COUNT, AUTOMATED 293 10^3/uL (150-450); RED BLOOD COUNT 3.76 10^6/uL (4.00-5.40); WHITE BLOOD COUNT 8.5 10^3/uL (4.0-10.0)
[2020-03-23 07:15] LABS: BLOOD UREA NITROGEN 14 MG/DL (7-18); CARBON DIOXIDE LEVEL 31 MEQ/L (21-32); CHLORIDE LEVEL 102 MEQ/L (98-107); CREATININE FOR GFR 0.63 MG/DL (0.55-1.30); GLOMERULAR FILTRATION RATE > 60.0 (>58); GLUCOSE, FASTING 85 MG/DL (70-100); POTASSIUM SERUM 4.6 MEQ/L (3.5-5.1); SODIUM LEVEL 138 MEQ/L (136-145)
[2020-03-23] MEDS: PANTOPRAZOLE 40MG TAB (PROTONIX) PO SCH (08:39)
[2020-03-23 10:00] VITALS: BP 132/92
[2020-03-23 14:00] VITALS: BP 133/92
[2020-03-23] MEDS: PERCOCET 5MG/325MG TAB PO PRN (15:34)
--- NOTE | 2020-03-23 19:48 | IPN ---
PROGRESS NOTE DATE: 03/21/2020 SUBJECTIVE: The patient overall has had significant improvement of her pain from when she was admitted. However, her white count did bump up this morning. She has had some drainage on the dressing, but otherwise her pain overall she states it is better today. She has had no fevers and no chills. OBJECTIVE: She has had some swelling in her hand, but she is able to move this around without any numbness or tingling in her hand and otherwise was doing well from her standpoint. She states the pain in her shoulder is resolving. ASSESSMENT AND PLAN: The patient had a subcutaneous abscess that actually reached down to the bicipital muscle and it was going through the subcutaneous tissue down into the muscular fascia following this all the way up to almost the shoulder itself. In any case, this was widely opened and packed, irrigated quite copiously at the time of her procedure, and overall appears to have made some progress. We will need to continue doing dressing changes on a b.i.d. basis. We will see how things look over the next day or so, but once her white count drops down low enough, we can probably discharge her home with p.o. antibiotics and daily dressing changes.
--- NOTE | 2020-03-23 20:06 | IPN ---
PROGRESS NOTE DATE: 03/22/2020 SUBJECTIVE: The patient has made some significant progress and decreased swelling in her arm overnight. Her white count has dropped to normal this morning. OBJECTIVE: She has been afebrile and overall, her hand is still relatively puffy, but making some slow but progressive improvement. There is no evidence of surrounding cellulitis and overall, the Jm wrap is intact, dressings are clean and dry at this point. ASSESSMENT AND PLAN: The patient had a subcutaneous abscess extending down into fascia. Overall from a muscle standpoint, she seems to be moving and does not seem to have any neurovascular complications after this significant abscess and drainage. We will continue her dressing changes for now and given the amount of infection present, I do not feel that she is actually a candidate for primary closure at this time; so we will continue with dressing changes. I anticipate if we can facilitate discharge, she should be able to be discharged home on a wet-to-dry dressing once daily and follow-up in the office in one to two weeks.
--- NOTE | 2020-03-23 20:13 | IPN ---
PROGRESS NOTE DATE: 03/23/2020 SUBJECTIVE: White count continues to be down and she states that her overall pain and discomfort seems to be improving. She has been on Piperacillin/Tazobactam for this; however, it looks like it is MRSA. Will discontinue the Zosyn for now and convert her over to p.o. medications. Once again, her micro shows that she has sensitivity to Bactrim and thus, we will put her on some Bactrim as well. OBJECTIVE: Otherwise from her dressing standpoint, it is all clean and dry. Her dressing has been going well with the nursing staff and Jm wrapping and slowly improving over time. ASSESSMENT AND PLAN: The patient has an open wound that seems to be healing by secondary intention. At this point, my recommendation is that she be discharged to home on a daily dressing change once a day wet-to-dry. However, there are some social issues where she does not feel it is safe to go home because of family issues and thus, we will get family services involved to see if there are some other options available for her. Otherwise at this point, I feel that we can start to convert her over to some p.o. meds and hopefully, plan on her taking some pain medications as needed and antibiotics after discharge.
[2020-03-23 22:00] VITALS: BP 133/90
[2020-03-23] MEDS: BACTRIM 160MG/800MG DS TAB PO SCH (22:48)
[2020-03-24] MEDS: KETOROLAC 30 MG/ML 1ML VIAL IV SCH ×2 (03:01→09:16)
[2020-03-24 06:00] VITALS: BP 136/94
[2020-03-24 07:05] LABS: HEMATOCRIT 34.9 % (36.0-47.0); HEMOGLOBIN 11.6 g/dl (12.0-15.5); MEAN CORPUSCULAR HEMOGLOBIN 28.9 pg (27.0-33.0); MEAN CORPUSCULAR HGB CONC 33.2 g/dl (32.0-36.5); PLATELET COUNT, AUTOMATED 299 10^3/uL (150-450); RED BLOOD COUNT 4.01 10^6/uL (4.00-5.40); WHITE BLOOD COUNT 9.2 10^3/uL (4.0-10.0)
[2020-03-24] MEDS: PERCOCET 5MG/325MG TAB PO PRN ×3 (07:05→22:51)
[2020-03-24 07:27] LABS: BLOOD UREA NITROGEN 15 MG/DL (7-18); CALCIUM LEVEL 8.4 MG/DL (8.5-10.1); CARBON DIOXIDE LEVEL 29 MEQ/L (21-32); CHLORIDE LEVEL 103 MEQ/L (98-107); CREATININE FOR GFR 0.66 MG/DL (0.55-1.30); GLOMERULAR FILTRATION RATE > 60.0 (>58); GLUCOSE, FASTING 87 MG/DL (70-100); POTASSIUM SERUM 4.7 MEQ/L (3.5-5.1); SODIUM LEVEL 138 MEQ/L (136-145)
[2020-03-24] MEDS: PANTOPRAZOLE 40MG TAB (PROTONIX) PO SCH (09:15)
[2020-03-24] MEDS: BACTRIM 160MG/800MG DS TAB PO SCH ×2 (09:15→22:51)
[2020-03-24 14:00] VITALS: BP 137/91
[2020-03-24] MEDS: NAPROXEN 250 MG TAB PO SCH (22:50)
[2020-03-24 23:05] VITALS: BP 135/80
[2020-03-25] MEDS: PERCOCET 5MG/325MG TAB PO PRN ×3 (05:58→17:14)
[2020-03-25 06:00] VITALS: BP 121/83
[2020-03-25 06:23] LABS: HEMATOCRIT 37.3 % (36.0-47.0); HEMOGLOBIN 11.8 g/dl (12.0-15.5); MEAN CORPUSCULAR HEMOGLOBIN 28.6 pg (27.0-33.0); MEAN CORPUSCULAR HGB CONC 31.6 g/dl (32.0-36.5); MEAN CORPUSCULAR VOLUME 90.3 fl (80.0-96.0); PLATELET COUNT, AUTOMATED 308 10^3/uL (150-450); RED BLOOD COUNT 4.13 10^6/uL (4.00-5.40); WHITE BLOOD COUNT 10.2 10^3/uL (4.0-10.0)
[2020-03-25 06:57] LABS: BLOOD UREA NITROGEN 23 MG/DL (7-18); CALCIUM LEVEL 8.4 MG/DL (8.5-10.1); CARBON DIOXIDE LEVEL 27 MEQ/L (21-32); CHLORIDE LEVEL 102 MEQ/L (98-107); CREATININE FOR GFR 0.82 MG/DL (0.55-1.30); GLOMERULAR FILTRATION RATE > 60.0 (>58); GLUCOSE, FASTING 82 MG/DL (70-100); POTASSIUM SERUM 4.8 MEQ/L (3.5-5.1); SODIUM LEVEL 136 MEQ/L (136-145)
[2020-03-25] MEDS: NAPROXEN 250 MG TAB PO SCH ×2 (08:29→21:41)
[2020-03-25] MEDS: BACTRIM 160MG/800MG DS TAB PO SCH ×2 (08:30→21:40)
[2020-03-25] MEDS: PANTOPRAZOLE 40MG TAB (PROTONIX) PO SCH (08:30)
[2020-03-25 14:00] VITALS: BP 127/84
[2020-03-25] MEDS: NICOTINE 21MG/24HR 1 EA TRANSDERMAL TD PRN (17:14)
[2020-03-25 20:15] VITALS: BP 135/72
[2020-03-26 06:00] VITALS: BP 131/85
[2020-03-26 07:35] LABS: HEMATOCRIT 40.5 % (36.0-47.0); HEMOGLOBIN 13.3 g/dl (12.0-15.5); MEAN CORPUSCULAR HEMOGLOBIN 29.3 pg (27.0-33.0); MEAN CORPUSCULAR HGB CONC 32.8 g/dl (32.0-36.5); MEAN CORPUSCULAR VOLUME 89.2 fl (80.0-96.0); PLATELET COUNT, AUTOMATED 326 10^3/uL (150-450); RED BLOOD COUNT 4.54 10^6/uL (4.00-5.40); WHITE BLOOD COUNT 13.4 10^3/uL (4.0-10.0)
[2020-03-26 08:02] LABS: BLOOD UREA NITROGEN 20 MG/DL (7-18); CALCIUM LEVEL 8.7 MG/DL (8.5-10.1); CARBON DIOXIDE LEVEL 26 MEQ/L (21-32); CHLORIDE LEVEL 101 MEQ/L (98-107); CREATININE FOR GFR 0.73 MG/DL (0.55-1.30); GLOMERULAR FILTRATION RATE > 60.0 (>58); GLUCOSE, FASTING 98 MG/DL (70-100); POTASSIUM SERUM 4.7 MEQ/L (3.5-5.1); SODIUM LEVEL 136 MEQ/L (136-145)
[2020-03-26] MEDS: NICOTINE 21MG/24HR 1 EA TRANSDERMAL TD PRN (08:05)
[2020-03-26] MEDS: PANTOPRAZOLE 40MG TAB (PROTONIX) PO SCH (08:05)
[2020-03-26] MEDS: BACTRIM 160MG/800MG DS TAB PO SCH ×2 (08:06→20:38)
[2020-03-26] MEDS: NAPROXEN 250 MG TAB PO SCH ×2 (08:06→20:38)
[2020-03-26] MEDS: PERCOCET 5MG/325MG TAB PO PRN ×3 (08:09→18:11)
--- NOTE | 2020-03-26 08:37 | IPNPDOC ---
Text Note Date of Service The patient was seen on 03/26/20. NOTE No acute events overnight. She is tolerating the diet and pain is minimal. She has not looked at it herself, but she has improved movement in the arm, and less swelling. No complaints. She wants to wait until Saturday when she has someone at home to help her. VSSAF NAD ext - deferred for now (she is in the middle of breakfast). labs - below A) 39y/o female s/p I+D of rt arm abscess P) PO abx monitor labs add IS will consider change of abx tomorrow if wbc continues to increase. plan on d/c home saturday. Luigi Parikh DO VS,Marcus, I+O VS, Cheryle, I+O Laboratory Tests 03/26/20 07:23 Vital Signs Date Time Temp Pulse Resp B/P (MAP) Pulse Ox O2 Delivery O2 Flow Rate FiO2 03/26/20 08:09 20 03/26/20 06:00 98.0 81 131/85 (100) 100 Room Air 03/20/20 11:30 I&O- Last 24 Hours up to 6 AM 03/26/20 06:00 Intake Total 590 ml Balance 590 ml BETZY PARIKH DO Mar 26, 2020 08:37
[2020-03-26] MEDS: ALPRAZolam 0.25 MG TAB PO PRN (13:22)
[2020-03-26 15:30] VITALS: BP 132/85
[2020-03-26 22:00] VITALS: BP 120/76
[2020-03-27 02:00] VITALS: BP 118/76
[2020-03-27] MEDS: ALPRAZolam 0.25 MG TAB PO PRN (05:37)
[2020-03-27 06:00] VITALS: BP 136/76
[2020-03-27 07:21] LABS: HEMATOCRIT 43.1 % (36.0-47.0); HEMOGLOBIN 13.8 g/dl (12.0-15.5); MEAN CORPUSCULAR HEMOGLOBIN 29.3 pg (27.0-33.0); MEAN CORPUSCULAR VOLUME 91.5 fl (80.0-96.0); PLATELET COUNT, AUTOMATED 297 10^3/uL (150-450); RED BLOOD COUNT 4.71 10^6/uL (4.00-5.40); WHITE BLOOD COUNT 11.6 10^3/uL (4.0-10.0)
[2020-03-27] MEDS ORDERED: PERCOCET PO (07:42)
[2020-03-27] MEDS ORDERED: SULF1TAB93 PO (07:42)
[2020-03-27 07:50] LABS: BLOOD UREA NITROGEN 23 MG/DL (7-18); CALCIUM LEVEL 9.1 MG/DL (8.5-10.1); CARBON DIOXIDE LEVEL 27 MEQ/L (21-32); CHLORIDE LEVEL 101 MEQ/L (98-107); CREATININE FOR GFR 0.89 MG/DL (0.55-1.30); GLOMERULAR FILTRATION RATE > 60.0 (>58); GLUCOSE, FASTING 109 MG/DL (70-100); POTASSIUM SERUM 4.5 MEQ/L (3.5-5.1); SODIUM LEVEL 135 MEQ/L (136-145)
[2020-03-27] MEDS: NAPROXEN 250 MG TAB PO SCH (08:03)
[2020-03-27] MEDS: PANTOPRAZOLE 40MG TAB (PROTONIX) PO SCH (08:03)
[2020-03-27] MEDS: BACTRIM 160MG/800MG DS TAB PO SCH (08:03)
[2020-03-27] MEDS: PERCOCET 5MG/325MG TAB PO PRN (08:06)
--- NOTE | 2020-04-18 11:57 | DSES ---
DISCHARGE SUMMARY DATE OF ADMISSION: 03/20/2020 DATE OF DISCHARGE: 03/27/2020 PRINCIPAL DIAGNOSIS: Right upper arm abscess secondary to I.V. drug abuse. ASSOCIATED DIAGNOSES: 1. History of I.V. drug abuse. 2. History of anxiety. 3. History of previous cellulitis, arm infections. 4. History of left hand ganglion cyst removal. 5. History of section times 4. 6. History of depression. 7. History of bipolar disorder with ADHD and PTSD. MEDICATIONS: Included: 1. Ibuprofen. 2. Bactrim. BRIEF HISTORY OF PRESENT ILLNESS: Patient is a 39-year-old female who returns for re-evaluation in the Emergency Room for a right arm abscess and has significant cellulitis, edema and pain associated with this. HOSPITAL COURSE SUMMARY: The patient was admitted with the above diagnosis, was taken to the operating room where she underwent incision and drainage of this abscess. It was quite extensive extending down to fascia and had severe edema of the right lower arm/forearm area distal to the abscess. Eventually with compression, elevation and dressing changes this significantly improved over the ensuing few days. Eventually she was discharged home with daily dressing changes and with instructions to follow up in 1-2 weeks for a re-evaluation. Medications at the time of discharge include: 1. Percocet. 2. Bactrim.
--- NOTE | 2020-04-19 11:13 | RO ---
OPERATIVE NOTE DATE OF OPERATION: 03/20/2020 PREOPERATIVE DIAGNOSIS: Abscess, right arm, abscess starting from the antecubital fossa, extending up to the right upper arm. POSTOPERATIVE DIAGNOSIS: Abscess, right arm, abscess starting from the antecubital fossa, extending up to the right upper arm. PROCEDURE: Incision and drainage of right arm abscess/debridement of skin, subcutaneous tissue. SURGEON: Shar Richardson M.D. [employer] ARCHITECT: ANESTHESIA: General endotracheal anesthesia. ESTIMATED BLOOD LOSS: Minimal. FLUIDS: Crystalloid. DESCRIPTION OF PROCEDURE: The patient was brought to the operating room, had a right upper arm abscess but it started in the antecubital fossa. The right forearm had a great deal of edema in it but did not have any significant fluctuance presence. An 18 gauge needle was placed at the antecubital fossa and indeed revealed significant purulent drainage. Then a 15 blade was used to open up the site and once it was opened, I was able to probe this cavity and see that it extended up towards the more proximal bicipital area. Distally, however, there was a significant amount of edema but I did not see any continuation down onto the forearm. I did use an 18 gauge needle to assess the subcutaneous tissue in this area and there was mostly just edema fluid that came out, no purulent fluid. In any case, the abscess cavity was followed up proximally and followed along the bicipital muscle and it actually went down to the level of the fascia itself and using sharp dissection and following along the muscle itself using the dissection plane that had been developed by the abscess itself, opening up over the top of my digit, I was able to follow this up to almost the proximal portion of the biceps itself almost up to the deltoid. But it seemed to taper out and I did not appreciate anymore purulent area, no evidence of abscesses or necrosis in the tissue around that area. After this was widely opened and necrotic tissue was removed and the abscess tissue was removed, copiously irrigated out until clear, the area was packed with a dry gauze. Kerlix was placed on the arm and Jm wrap from the wrist up to the shoulder. The patient was awakened from her sedation and brought to the recovery room awake, alert and hemodynamically stable. Edited: [facility] [id number] [email or web address]
== END 2020-03-27 08:40 | disposition home or self-care (01) | DRG 364 ==
LOC: M ED 05:09 → M SDC 05:10 → M MS5PR 14:04
PROVIDERS: ADMIT Surgery; ATTEND Surgery
PROC: 0J9D0ZZ Drainage of Right Upper Arm Subcutaneous Tissue and Fascia, Open Approach (ICD-10-PCS; principal; 2020-03-20 12:00)
DX: L02.413 Cutaneous abscess of right upper limb (principal); F31.9 Bipolar disorder, unspecified; F41.9 Anxiety disorder, unspecified; F43.10 Post-traumatic stress disorder, unspecified; L03.113 Cellulitis of right upper limb

== ENCOUNTER 2020-07-12 13:00 | Emergency (ER) | payer OTHER ==
[~2020-07-12] VITALS: Ht 152.4 cm; Wt 59.1 kg
[~2020-07-12 13:00] MED LIST changes: +IBUP1TAB6 PO; +PERCOCET PO; +SULF1TAB93 PO
--- NOTE | 2020-07-12 14:34 | REP ---
INDICATION: r/o dvt, pain thigh. COMPARISON: None. TECHNIQUE: Multiple ultrasonographic images of the deep venous structures of the left thigh were obtained from the common femoral vein to the popliteal vein along with Doppler interrogation and color flow Doppler images. FINDINGS: There is no abnormal echogenic material seen within any of the visualized deep venous structures that would suggest acute thrombosis. Coaptation is unremarkable throughout. Doppler interrogation shows an expected response to respiratory variability and augmentation. The color flow images show what appears to be a normal vascular pattern throughout. IMPRESSION: There is no ultrasonographic evidence of deep venous thrombosis involving any of the visualized deep venous structures of the left thigh, as described above. <Electronically signed by Harjit Quintanilla > 07/12/20 [id number]
[2020-07-12 14:35] LABS: BASO % 0.5 % (0.0-1.0); EOS # 0.1 10^3/uL (0.0-0.5); EOS % 0.7 % (0.0-3.0); HEMATOCRIT 37.8 % (36.0-47.0); HEMOGLOBIN 12.2 g/dl (12.0-15.5); LYMPH # 1.5 10^3/uL (1.5-5.0); LYMPH % 17.7 % (24.0-44.0); MEAN CORPUSCULAR HEMOGLOBIN 28.3 pg (27.0-33.0); MEAN CORPUSCULAR HGB CONC 32.3 g/dl (32.0-36.5); MEAN CORPUSCULAR VOLUME 87.7 fl (80.0-96.0); MONO # 0.6 10^3/uL (0.0-0.8); MONO % 7.1 % (2.0-8.0); NEUTROPHILS # 6.3 10^3/uL (1.5-8.5); NEUTROPHILS % 72.8 % (36.0-66.0); PLATELET COUNT, AUTOMATED 238 10^3/uL (150-450); RED BLOOD COUNT 4.31 10^6/uL (4.00-5.40); WHITE BLOOD COUNT 8.6 10^3/uL (4.0-10.0)
[2020-07-12 15:02] LABS: BLOOD UREA NITROGEN 13 MG/DL (7-18); CARBON DIOXIDE LEVEL 33 MEQ/L (21-32); CHLORIDE LEVEL 101 MEQ/L (98-107); CREATININE FOR GFR 0.65 MG/DL (0.55-1.30); GLOMERULAR FILTRATION RATE > 60.0 (>58); GLUCOSE, FASTING 128 MG/DL (70-100); POTASSIUM SERUM 3.8 MEQ/L (3.5-5.1); SODIUM LEVEL 139 MEQ/L (136-145)
[2020-07-12] MEDS ORDERED: BACT800T5 PO (15:25)
[2020-07-12 15:51] VITALS: BP 121/75
== END 2020-07-12 16:26 | disposition home or self-care (01) ==
LOC: EDBD 13:00 → M ED 13:00
DX: L03.116 Cellulitis of left lower limb (principal); F11.10 Opioid abuse, uncomplicated; F17.210 Nicotine dependence, cigarettes, uncomplicated

== ENCOUNTER 2020-12-31 15:05 | Emergency (ER) | payer MEDICAID, OTHER, SELFPAY ==
[~2020-12-31] VITALS: Ht 152.4 cm; Wt 64.4 kg
[~2020-12-31 15:05] MED LIST changes: +BACTDSTA PO; -SULF1TAB93 PO
[2020-12-31] MEDS ORDERED: ONDANSETRON 4 MG ORAL DISINTEGRATING TAB PO ONE (15:45)
[2020-12-31 16:30] VITALS: BP 108/56
== END 2020-12-31 16:45 | disposition home or self-care (01) ==
LOC: EDBD 15:05 → M ED 15:05
DX: F11.10 Opioid abuse, uncomplicated (principal); T40.1X1A Poisoning by heroin, accidental (unintentional), initial encounter; Y92.89 Other specified places as the place of occurrence of the external cause; F31.9 Bipolar disorder, unspecified; Z86.14 Personal history of Methicillin resistant Staphylococcus aureus infection; F17.210 Nicotine dependence, cigarettes, uncomplicated
CPT/HCPCS: 99284; Q0162

== ENCOUNTER 2021-01-15 16:51 | Inpatient (IN) | payer MEDICAID, OTHER, SELFPAY ==
[~2021-01-15] VITALS: Ht 152.4 cm; Wt 67.1 kg
--- OUTSIDE RECORDS SUMMARY | 2021-01-15 17:22 | CCD ---
Author Author [facility] Organization [facility] Address Unknown Phone Unavailable Care Team Providers Care Beef Trimmer Name Role Phone Merline Pat Unavailable Re-disclosure Warning The records that you are about to access may contain information from federally-assisted alcohol or drug abuse programs. If such information is present, then the following federally mandated warning applies: This information has been disclosed to you from records protected by federal confidentiality rules (42 CFR part 2). The federal rules prohibit you from making any further disclosure of this information unless further disclosure is expressly permitted by the written consent of the person to whom it pertains or as otherwise permitted by 42 CFR part 2. A general authorization for the release of medical or other information is NOT sufficient for this purpose. The Federal rules restrict any use of the information to criminally investigate or prosecute any alcohol or drug abuse patient.The records that you are about to access may contain highly sensitive health information, the redisclosure of which is protected by Article 27-F of the [facility] Public Health law. If you continue you may have access to information: Regarding HIV / AIDS; Provided by facilities licensed or operated by the [facility] Office of Mental Health; or Provided by the [facility] Office for People With Developmental Disabilities. If such information is present, then the following [facility] mandated warning applies: This information has been disclosed to you from confidential records which are protected by state law. State law prohibits you from making any further disclosure of this information without the specific written consent of the person to whom it pertains, or as otherwise permitted by law. Any unauthorized further disclosure in violation of state law may result in a fine or usp sentence or both. A general authorization for the release of medical or other information is NOT sufficient authorization for further disc losure. Encounters Encounter Providers Location Date Indications Data Source(s ) Attender: Merline Pat 09/29/2020 12:00:00 AM E DT [facility] ([facility]) Crisis Intervention - Brief Attender: Merline Samson [facility] 09/28/2020 12:15:00 PM EDT - 09/28/2020 12:15:00 PM EDT [facility] ([facility]) Immunizations Vaccine Date Status Description Data Source(s) COVID-19 VACCINE Moderna 07/17/2020 12:00:00 AM EDT completed [facility] Vaccine Series Complete: NOThis Data was Submitted to [facility] [employer]. Medications Medication Brand Name Start Date Product Form Dose Route Admi nistrative Instructions Pharmacy Instructions Status Indications Reaction Description Data Source(s) Ibuprofen 200 MG Oral Tablet Ibuprofen 09/27/2020 12:00:00 AM EDT ORAL active [facility] ([facility]) Insurance Providers Payer name Policy type / Coverage type Policy ID Covered republican ID Covered republican's relationship to raymundo Policy Raymundo Plan Information MEDICAID M [id number] Self [id number] MEGHNA [id number] SP [id number] 500 [facility] [id number] S [id number] Self Pay P UNAVAILABLE S [facility]LE [facility] [id number] S [id number] [id number] MEGHNA [id number] SP [id number] SELF PAY ONLY [id number] SP [id number] SELF PAY S Problems, Conditions, and Diagnoses Code Display Name Description Problem Type Effective Dates Data Source(s) F15.20 Other stimulant dependence, uncomplicate d Stimulant Use Disorder, Severe: Amphetamine-type substance Condition 09/29/2020 12:00:00 AM EDT [facility] ([facility]) F11.20 Opioid dependence, uncomplicated Opioid Use Disorder, Severe Condition 09/29/2020 12:00:00 AM EDT [facility] ([facility]) F32.9 Major depressive disorder, single episod e, unspecified Unspecified depressive Disorder Condition 09/29/2020 12:00:00 AM EDT [facility]) Surgeries/Procedures Procedure Description Date Indications Data Source(s) Crisis intervention service, per 15 minutes 09/29/2020 12:00:00 AM EDT - 09/29/2020 12:00:00 AM EDT [facility] ([facility]) Crisis intervention service, per 15 minutes 09/28/2020 12:00:00 AM EDT [facility] ([facility]) Results ID Date Data Source [id number] 03/20/2020 06:22:00 AM EST [facility] Name Value Range Interpretation Code Description Data Sharon rce(s) Supporting Document(s) SARS coronavirus 2 RNA [Presence] in Res piratory specimen by JIGNESH with probe detection [facility] This lab was ordered by [facility] a nd reported by [facility]. Procedure Social History Code Duration Value Status Description Data Source(s ) Smoking 09/29/2020 12:00:00 AM EDT Unknown if ever smoked comp leted Unknown if ever smoked [facility] ([facility]) Vital Signs ID Date Data Source UNK Name Value Range Interpretation Code Description Data Source(s) Systolic blood pressure 126 mm[Hg] 126 mm[Hg] [facility] ([facility]) Diastolic blood pressure 85 mm[Hg] 85 mm[Hg] [facility] ([facility]) Heart rate 100 /min 100 /min [facility] ([facility] Respiratory rate 20 /min 20 /min [facility] ( [facility]) Body temperature 98.0 [degF] 98.0 [degF] [facility] Body weight 130.00 [lb_av] 130.00 [lb_av] [facility] ([facility]) Body height 5.0 [in_i] 5.0 [in_i] [facility] ([facility]) 0'5" Systolic blood pressure 128 mm[Hg] 128 mm[Hg[facility] Diastolic blood pressure 81 mm[Hg] 81 mm[Hg] [facility] Heart rate 92 /min 92 /min [facility] ([facility] Respiratory rate 18 /min 18 /min [facility] ( [facility]) Body temperature 98.5 [degF] 98.5 [degF] [facility] ([facility])
[2021-01-15 17:50] LABS: HEMATOCRIT 37.4 % (36.0-47.0); HEMOGLOBIN 12.5 g/dl (12.0-15.5); MEAN CORPUSCULAR HEMOGLOBIN 29.1 pg (27.0-33.0); MEAN CORPUSCULAR HGB CONC 33.4 g/dl (32.0-36.5); MEAN CORPUSCULAR VOLUME 87.2 fl (80.0-96.0); PLATELET COUNT, AUTOMATED 180 10^3/uL (150-450); RED BLOOD COUNT 4.29 10^6/uL (4.00-5.40); WHITE BLOOD COUNT 10.1 10^3/uL (4.0-10.0)
--- OUTSIDE RECORDS SUMMARY | 2021-01-15 18:09 | CCD ---
Author Author [facility] Organization [facility] Address Unknown Phone Unavailable Care Team Providers Care Grades 1 Thru 6 Visiting Teacher Name Role Phone Merline Pat Unavailable Re-disclosure [...] is protected by Article 27-F of the [facility] Public Health law. If you continue you may have access to information: Regarding HIV / AIDS; Provided by facilities licensed or operated by the [facility] Office of Mental Health; or Provided by the [facility] Office for People With Developmental Disabilities. If such information is present, then the following [facility] mandated warning applies: This information has been [...] law may result in a fine or fpc sentence or both. A general authorization for the release of medical or other information is NOT sufficient authorization for further disc losure. Encounters Encounter Providers Location Date Indications Data Source(s ) Attender: Merline Pat 09/29/2020 12:00:00 AM E DT [facility] ([facility]) Crisis Intervention - Brief Attender: Merline [facility] 09/28/2020 12:15:00 PM EDT - 09/28/2020 12:15:00 PM EDT [facility] ([facility]) Immunizations Vaccine Date Status Description Data Source(s) COVID-19 VACCINE Moderna 07/17/2020 12:00:00 AM EDT completed NYSIIS Vaccine Series Complete: NOThis Data was Submitted to [facility] Via [employer]. Medications Medication Brand Name Start Date Product Form Dose Route Admi nistrative Instructions Pharmacy Instructions Status Indications Reaction Description Data Source(s) Ibuprofen 200 MG Oral Tablet Ibuprofen 09/27/2020 12:00:00 AM EDT ORAL active [facility] ([facility]) Insurance Providers Payer name Policy type / Coverage type Policy ID Covered alliance party ID Covered alliance party's relationship to raymundo Policy Raymundo Plan Information MEDICAID M [id number] Self [id number] SELF PAY ONLY [id number] SP [id number] MEGHNA [id number] SP [id number] [facility] [id number] S [id number] Self Pay P UNAVAILABLE S UNAVAILA BLE [facility] [id number] S [id number] MEDICAID [id number] MEGHNA [id number] SP [id number] SELF PAY S Problems, Conditions, and Diagnoses Code Display Name Description Problem Type Effective Dates Data Source(s) F15.20 Other stimulant dependence, uncomplicate d Stimulant Use Disorder, Severe: Amphetamine-type substance Condition 09/29/2020 12:00:00 AM EDT [facility] ([facility]) F11.20 Opioid dependence, uncomplicated Opioid Use Disorder, Severe Condition 09/29/2020 12:00:00 AM EDT [facility] ([facility]) F32.9 Major depressive disorder, single episod e, unspecified Unspecified depressive Disorder Condition 09/29/2020 12:00:00 AM EDT [facility]) Surgeries/Procedures Procedure Description Date Indications Data Source(s) Crisis intervention service, per 15 minutes 09/29/2020 12:00:00 AM EDT - 09/29/2020 12:00:00 AM EDT [facility] ([facility]) Crisis intervention service, per 15 minutes 09/28/2020 12:00:00 AM EDT [facility] ([facility]) Results ID Date Data Source [id number] 03/20/2020 06:22:00 AM EST [facility] Name Value Range Interpretation Code Description Data Sharon rce(s) Supporting Document(s) SARS coronavirus 2 RNA [Presence] in Res piratory specimen by JIGNESH with probe detection [facility] This lab was ordered by [facility] a nd reported by [facility]. Procedure Social History Code Duration Value Status Description Data Source(s ) Smoking 09/29/2020 12:00:00 AM EDT Unknown if ever smoked comp leted Unknown if ever smoked [facility] ([facility]) Vital Signs ID Date Data Source UNK Name Value Range Interpretation Code Description Data Source(s) Systolic blood pressure 126 mm[Hg] 126 mm[Hg] M EDENT ([facility]) Diastolic blood pressure 85 mm[Hg] 85 mm[Hg] [facility] ([facility]) Heart rate 100 /min 100 /min [facility] ([facility]) Res[facility] 20 /min 20 /[facility] Body temperature 98.0 [degF] 98.0 [degF] [facility] ([facility]) Body weight 130.00 [lb_av] 130.00 [lb_av] [facility]EN T ([facility]) Body height 5.0 [in_i] 5.0 [in_i] [facility] ([facility]) 0'5" Heart rate 92 /min 92 /min [facility] ([facility]) Respiratory rate 18 /min 18 /min [facility] ( [facility]) Body temperature 98.5 [degF] 98.5 [degF] [facility] ([facility]) Systolic blood pressure 128 mm[Hg] 128 mm[Hg] M ASHELY ([facility]) Diastolic blood pressure 81 mm[Hg] 81 mm[Hg] [facility] ([facility])
[2021-01-15 18:25] LABS: AMPHETAMINES LEVEL URINE NEGATIVE (NEGATIVE); BARBITURATES URINE NEGATIVE (NEGATIVE); BENZODIAZEPINES URINE NEGATIVE (NEGATIVE); CANNABINOIDS URINE POSITIVE (NEGATIVE); COCAINE METABOLITE URINE NEGATIVE (NEGATIVE); METHADONE URINE NEGATIVE (NEGATIVE); OPIATES URINE NEGATIVE (NEGATIVE); PHENCYCLIDINE URINE NEGATIVE (NEGATIVE)
[2021-01-15 18:30] LABS: HCG, SERUM QUALITATIVE NEGATIVE (NEGATIVE)
[2021-01-15 18:32] LABS: ACETAMINOPHEN LEVEL < 2.0 UG/ML (10.0-30.0); ALBUMIN 2.9 GM/DL (3.2-5.2); ALT/SGPT 111 U/L (12-78); BILIRUBIN,DIRECT < 0.1 MG/DL (0.0-0.2); BILIRUBIN,TOTAL 0.2 MG/DL (0.2-1.0); BLOOD UREA NITROGEN 19 MG/DL (7-18); CALCIUM LEVEL 8.3 MG/DL (8.5-10.1); CARBON DIOXIDE LEVEL 27 MEQ/L (21-32); CHLORIDE LEVEL 106 MEQ/L (98-107); CREATININE FOR GFR 0.59 MG/DL (0.55-1.30); GLOMERULAR FILTRATION RATE > 60.0 (>58); GLUCOSE, FASTING 98 MG/DL (70-100); POTASSIUM SERUM 3.8 MEQ/L (3.5-5.1); SALICYLATE LEVEL < 1.7 MG/DL (5.0-30.0); SODIUM LEVEL 140 MEQ/L (136-145); TOTAL PROTEIN 6.6 GM/DL (6.4-8.2)
[2021-01-15 18:33] LABS: ETHYL ALCOHOL (ETHANOL) < 0.003 % (0.000-0.010)
[2021-01-15] MEDS ORDERED: HOME MED LIST COMPLETE! XX SCH (18:55)
--- NOTE | 2021-01-15 20:09 | ECGEPIP ---
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
[2021-01-16] MEDS ORDERED: NICOTINE 21MG/24HR 1 EA TRANSDERMAL TD ONE (10:35)
[2021-01-16 12:27] LABS: RSV AMPLIFICATION NEGATIVE (NEGATIVE)
[2021-01-16] MEDS ORDERED: traZODone 50 MG TAB PO PRN (15:05)
[2021-01-16] MEDS ORDERED: ACETAMINOPHEN TAB 650MG DOSE (2X325MG) PO PRN (15:05)
[2021-01-16] MEDS ORDERED: MOM 30ML SUSPENSION UDC PO PRN (15:05)
[2021-01-16] MEDS ORDERED: MAALOX 30 ML SUSP *UDC PO PRN (15:05)
--- OUTSIDE RECORDS SUMMARY | 2021-01-16 15:26 | CCD ---
Author Author [facility] Organization [facility] Address Unknown Phone Unavailable Care Team Providers Care Nutrition Educator Name Role Phone Merline Pat Unavailable Re-disclosure [...] is protected by Article 27-F of the [facility] Public Health law. If you continue you may have access to information: Regarding HIV / AIDS; Provided by facilities licensed or operated by the [facility] Office of Mental Health; or Provided by the [facility] Office for People With Developmental Disabilities. If such information is present, then the following [facility] mandated warning applies: This information has been [...] law may result in a fine or halfway sentence or both. A general authorization for the release of medical or other information is NOT sufficient authorization for further disc losure. Encounters Encounter Providers Location Date Indications Data Source(s ) Attender: Merline Pat 09/29/2020 12:00:00 AM E DT [facility] ([facility]) Crisis Intervention - Brief Attender: Merline [facility] 09/28/2020 12:15:00 PM EDT - 09/28/2020 12:15:00 PM EDT [facility] ([facility]) Immunizations Vaccine Date Status Description Data Source(s) COVID-19 VACCINE Moderna 07/17/2020 12:00:00 AM EDT completed NYSIIS Vaccine Series Complete: NOThis Data was Submitted to [facility] Via [employer]. Medications Medication Brand Name Start Date Product Form Dose Route Admi nistrative Instructions Pharmacy Instructions Status Indications Reaction Description Data Source(s) Ibuprofen 200 MG Oral Tablet Ibuprofen 09/27/2020 12:00:00 AM EDT ORAL active [facility] ([facility]) Insurance Providers Payer name Policy type / Coverage type Policy ID Covered constitution party ID Covered constitution party's relationship to raymundo Policy Raymundo Plan Information MEDICAID M [id number] Self [id number] MEGHNA [id number] SP [id number] MEGHNA [id number] SP [id number] 500 [facility] [id number] S [id number] Self Pay P UNAVAILABLE S UNAVAILA BLE [facility] [id number] S [id number] MEDICAID [id number] SELF PAY ONLY [id number] SP [id number] SELF PAY S Problems, Conditions, and Diagnoses Code Display Name Description Problem Type Effective Dates Data Source(s) F15.20 Other stimulant dependence, uncomplicate d Stimulant Use Disorder, Severe: Amphetamine-type substance Condition 09/29/2020 12:00:00 AM EDT [facility] ([facility]) F11.20 Opioid dependence, uncomplicated Opioid Use Disorder, Severe Condition 09/29/2020 12:00:00 AM EDT [facility] ([facility]) F32.9 Major depressive disorder, single episod e, unspecified Unspecified depressive Disorder Condition 09/29/2020 12:00:00 AM EDT [facility]) Surgeries/Procedures Procedure Description Date Indications Data Source(s) Crisis intervention service, per 15 minutes 09/29/2020 12:00:00 AM EDT - 09/29/2020 12:00:00 AM EDT [facility] ([facility]) Crisis intervention service, per 15 minutes 09/28/2020 12:00:00 AM EDT [facility] ([facility]) Results ID Date Data Source [id number] 03/20/2020 06:22:00 AM EST [facility] Name Value Range Interpretation Code Description Data Sharon rce(s) Supporting Document(s) SARS coronavirus 2 RNA [Presence] in Res piratory specimen by JIGNESH with probe detection [facility] This lab was ordered by [facility] a nd reported by [facility]. Procedure Social History Code Duration Value Status Description Data Source(s ) Smoking 09/29/2020 12:00:00 AM EDT Unknown if ever smoked comp leted Unknown if ever smoked [facility] ([facility]) Vital Signs ID Date Data Source UNK Name Value Range Interpretation Code Description Data Source(s) Systolic blood pressure 126 mm[Hg] 126 mm[Hg] [facility] ([facility]) Diastolic blood pressure 85 mm[Hg] 85 mm[Hg] [facility] ([facility]) Heart rate 100 /min 100 /min [facility] ([facility]) Respiratory rate 20 /min 20 /min [facility] ( [facility]) Body temperature 98.0 [degF] 98.0 [degF] [facility] Body weight 130.00 [lb_av] 130.00 [lb_av] [facility] ([facility]) Body height 5.0 [in_i] 5.0 [in_i] [facility] ([facility]) 0'5" Systolic blood pressure 128 mm[Hg] 128 mm[Hg] [facility] Diastolic blood pressure 81 mm[Hg] 81 mm[Hg] [facility] Heart rate 92 /min 92 /min [facility] ([facility]) Respiratory rate 18 /min 18 /min [facility] ( [facility]) Body temperature 98.5 [degF] 98.5 [degF] [facility] ([facility])
[2021-01-16 18:39] VITALS: BP 134/80
[2021-01-16] MEDS ORDERED: INFLUENZA QUADRIVALENT PF VACCINE 0.5ML SYRINGE IM ONE (23:25)
[2021-01-17 06:40] VITALS: BP 126/65
[2021-01-17] MEDS ORDERED: INFLUENZA QUADRIVALENT PF VACCINE 0.5ML SYRINGE IM ONE (08:35)
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
[2021-01-17] MEDS: buPROPion **XL** TABLET 150MG (WELLBUTRIN XL) PO SCH (10:21)
[2021-01-17] MEDS: NALTREXONE 50 MG TAB PO SCH (10:21)
[2021-01-17] MEDS: ESCITALOPRAM OXALATE 10 MG TAB (LEXAPRO) PO SCH (10:21)
[2021-01-17 11:19] LABS: PERCENT SATURATION 15.5 % (13.2-45.0)
[2021-01-17] MEDS: NICOTINE 21MG/24HR 1 EA TRANSDERMAL TD SCH (11:22)
[2021-01-17] MEDS: cloNIDine 0.05MG 1/2 TABLET PO SCH ×2 (11:25→21:51)
--- NOTE | 2021-01-17 18:49 | HPEPDOC ---
[facility] Medical History & Physical Date of Admission Jan 16, 2021 Date of Service: Jan 17, 2021 History and Physical CHIEF COMPLAINT: Medical health screening HISTORY OF PRESENT ILLNESS: Mrs. Camara is a 40-year-old female with PTSD, ADHD, bipolar, anxiety, and polysubstance abuse who is in the inpatient mental health unit for suicidal ideation. Please see mental health H&P for information about patient's suicidal ideation. I saw patient in the inpatient mental health unit, she tells me she is feeling better. Denies any fever or chills, changes in vision, sore throat, chest pain, dyspnea, abdominal pain, diarrhea, or dysuria. Patient had no other complaints or concerns. PAST MEDICAL HISTORY: 1. PTSD. 2. ADHD. 3. Bipolar. 4. Polysubstance abuse PAST SURGICAL HISTORY: 1. Left hand ganglion cyst removal. 2. Right upper arm abscess drainage. SOCIAL HISTORY: Tobacco use: Current smoker ETOH: Denies Illicit drug use: Reports using IV drugs including meth and Jyothi FAMILY HISTORY: Father: Does not know father's past medical history Mother: at the age of 52 from a heart attack ALLERGIES: Please see below. REVIEW OF SYSTEMS: CONSTITUTIONAL: Denies any fever or chills. ENT: Denies sore throat. RESPIRATORY: Denies shortness of breath. CARDIOVASCULAR: Denies chest pain. GASTROINTESTINAL: Denies abdominal pain. Denies diarrhea. Denies constipation GENITOURINARY: Denies dysuria. CUTANEOUS: Denies rashes. MUSCULOSKELETAL: Denies muscle weakness. NEUROLOGICAL: Denies neuropathy. PSYCHOLOGICAL: Reports anxiety. Reports depression. HOME MEDICATIONS: Please see below. PHYSICAL EXAMINATION: VITAL SIGNS: Temperature 98.7, pulse 85, respiratory rate 20, blood pressure 122/82, pulse oximetry 98% on room air. GENERAL: Comfortable, in no apparent distress. HEENT: Head normocephalic/atraumatic, EOMI, sclera clear. NECK: Supple. RESPIRATORY: Lungs clear to auscultation bilaterally, no rales, wheeze or rhonchi. CARDIOVASCULAR: Regular rate and rhythm. ABDOMEN: Soft, nontender, no guarding or rebound tenderness. Normal bowel sounds. MUSCLE SKELETAL: Muscle strength 5/5 in all extremities. NEUROLOGICAL: CN12 grossly intact, no focal deficits noted. PSYCHOLOGICAL: Mildly hyper LABORATORY DATA: See below. IMAGING: None MICROBIOLOGY: Please see below. ASSESSMENT and PLAN: 1. Suicidal ideation. Being managed by the inpatient mental health unit 2. Anxiety/depression Being managed by the inpatient mental health unit Thank you for consulting us. We will sign off at this time. If there is any further questions or concerns, please do not hesitate to reconsult us. Vital Signs Vital Signs Date Time Temp Pulse Resp B/P (MAP) Pulse Ox O2 Delivery O2 Flow Rate FiO2 01/17/21 11:25 122/82 01/17/21 06:40 98.7 85 20 98 Room Air Laboratory Data Labs 24H Laboratory Tests 2 01/17/21 10:31: Iron Level 69, Total Iron Binding Capacity 445, Transferrin % Saturation 15.5 Home Medications No Active Prescriptions or Reported Meds Allergies Coded Allergies: No Known Allergies (Verified Allergy, Unknown, 03/21/19) A-FIB/CHADSVASC A-FIB History Current/History of A-Fib/PAF?: No Age/Risk Factor Scoring CHADSVASC: CHADSVASC Response (Comments) Value Age Risk Factor Age < 65 years old 0 Gender Risk Factor Female 1 Hx of CHF No 0 Hx of HTN No 0 Hx of Stroke/TIA/or VTE No 0 Hx of Diabetes No 0 Hx of Vascular Disease No 0 Total 1 RAJ HARVEY DO Jan 17, 2021 18:49
[2021-01-17 19:17] VITALS: BP 136/72
[2021-01-18 06:41] VITALS: BP 112/72
[2021-01-18] MEDS: buPROPion **XL** TABLET 150MG (WELLBUTRIN XL) PO SCH (08:59)
[2021-01-18] MEDS: ESCITALOPRAM OXALATE 10 MG TAB (LEXAPRO) PO SCH (09:00)
[2021-01-18] MEDS: NICOTINE 21MG/24HR 1 EA TRANSDERMAL TD SCH (09:00)
[2021-01-18] MEDS: cloNIDine 0.05MG 1/2 TABLET PO SCH ×2 (09:00→21:58)
[2021-01-18] MEDS: NALTREXONE 50 MG TAB PO SCH (09:00)
--- NOTE | 2021-01-18 10:36 | MHIPNPDOC ---
[facility] Progress Note Progress Note DATE OF SERVICE: 01/18/21 HISTORY: Patient is a 40 -year-old , female, who has a history consuelo, methamphetamine, cannabis and heroin use and a reported past psychiatric history of PTSD, ADHD, Bipolar, anxiety, last visit to [facility] was July 2019. States she is suicidal "If I was out there probably yeah", and purposely tried to overdose on I.V heroin intentionally to end her life 2 weeks ago. She has 4 children, removed by CPS 3 years ago. During interview patient is rocking back and forth which is reported to be her symptoms of withdrawal. Says she was at home alone in [facility] and had thoughts of overdosing on her seroquel, states instead of taking it she called 911, and was brought by [facility] to the [facility] ED. States last use of drugs was 5 days ago, "consuelo", and methamphetamine, reports has not used heroin was 2 weeks ago. Patient is rocking constantly, "painful to sit still". Interval: States she wants to go home, sleeping poorly due to worrying about partner. Tolerating medications without side effects and no acute physical complaints. Reports restlessness from drugs has subsided, not seen bobbing and moving around during interview. VITAL SIGNS: See below. NEW TEST RESULTS: iron panel normal CURRENT MEDICATIONS: See below. MENTAL STATUS EXAMINATION: Patient is a 40-year old female, who is in no acute physical complaints, dry skin, disheveled, thin Speech: Is logical, linear. Language skills are good Thought processes including: Linear, logical. Thought content: Likely minimizing symptoms of depression stating that medications working immediately, anxious to leave the unit in context of substance abuse abstract reasoning, and computation: Fair description of associations: Good. Description of abnormal or psychotic thoughts: Denies. Judgment: Poor Insight: Poor. Orientation: x4. Recent and remote memory: Intact. Attention span and concentration: Good. Language: Latvian. Fund of knowledge: Average baseline. Mood: "fine". Affect: Anxious, constricted, appropriate, mood incongruent DIAGNOSES: Major depressive disorder, recurrent, moderate Substance induced depressive disorder Generalized anxiety disorder Methamphetamine use disorder Cannabis use disorder Heroin use disorder Hallucinogen use disorder, "consuelo" Tobacco use disorder ASSESSMENT: Patient continues to be anxious, does report improvement in mood, due to severity of suicide times prior to admission and likelihood for using, his opioid cravings, needs extended stay on the unit to maintain safety. Also reports acute stressor of anxiety of how partner is doing in the hospital and being unable to reach him. MANAGEMENT PLAN: Continue medication, iron panel level within normal limits, denies any lightheadedness, restlessness has improved. TIME SPENT: 15 minutes. Vital Signs Vital Signs Date Time Temp Pulse Resp B/P (MAP) Pulse Ox O2 Delivery O2 Flow Rate FiO2 01/18/21 09:00 145/90 01/18/21 06:41 98.9 75 16 98 Room Air Laboratory Data 24H Labs Laboratory Tests 2 01/17/21 10:31: Iron Level 69, Total Iron Binding Capacity 445, Transferrin % Saturation 15.5 Current Medications Current Medications Medications (Trade) Dose Ordered Sig/Allen Route PRN Reason Start Time Stop Time Status Last Admin Dose Admin Acetaminophen (Tylenol Tab) 650 mg Q6HP PRN PO HEADACHE or MILD DISCOMFORT 01/16/21 15:05 01/16/21 21:43 Al Hydrox/Mg Hydrox/Simethicone (Mylanta) 30 ml Q4HP PRN PO HEARTBURN/INDIGESTION 01/16/21 15:05 Bupropion HCl (Wellbutrin Xl) 150 mg DAILY PO 01/17/21 09:00 01/18/21 08:59 Clonidine HCl (Catapres) 0.05 mg BID PO 01/17/21 09:00 01/18/21 09:00 Escitalopram Oxalate (Lexapro) 10 mg DAILY PO 01/17/21 09:10 01/18/21 09:00 Home Med (Home Med List Complete!) ASDIRECTED XX 01/15/21 18:55 01/15/21 19:02 DC Magnesium Hydroxide (Milk Of Magnesia) 30 ml DAILYPRN PRN PO CONSTIPATION 01/16/21 15:05 Naltrexone HCl (Revia) 50 mg DAILY PO 01/17/21 09:00 01/18/21 09:00 Nicotine (Nicoderm Cq 21mg) 1 patch DAILY TD 01/17/21 09:00 01/18/21 09:00 Trazodone HCl (Desyrel) 50 mg QHSP PRN PO INSOMNIA 01/16/21 15:05 01/16/21 21:42 Allergies Coded Allergies: No Known Allergies (Verified Allergy, Unknown, 03/21/19) ONEAL ROSAS MD Jan 18, 2021 10:36
[2021-01-18] MEDS ORDERED: hydrOXYzine 50 MG TAB PO PRN (12:45)
[2021-01-18] MEDS ORDERED: OLANZapine 5 MG TAB PO PRN (12:45)
[2021-01-18 17:49] VITALS: BP 125/61
[2021-01-18] MEDS: traZODone 100 MG TAB PO PRN (21:58)
[2021-01-19 06:11] VITALS: BP 101/61
[2021-01-19] MEDS: buPROPion **XL** TABLET 150MG (WELLBUTRIN XL) PO SCH (07:53)
[2021-01-19] MEDS: ESCITALOPRAM OXALATE 10 MG TAB (LEXAPRO) PO SCH (07:54)
[2021-01-19] MEDS: cloNIDine 0.05MG 1/2 TABLET PO SCH ×2 (07:55→21:46)
[2021-01-19] MEDS: NALTREXONE 50 MG TAB PO SCH (07:55)
[2021-01-19] MEDS: NICOTINE 21MG/24HR 1 EA TRANSDERMAL TD SCH (07:57)
--- NOTE | 2021-01-19 13:30 | MHIPNPDOC ---
[facility] Progress Note Progress Note DATE OF SERVICE: 01/19/21 HISTORY: Patient is a 40 -year-old , female, who has a history consuelo, methamphetamine, cannabis and heroin use and a reported past psychiatric history of PTSD, ADHD, Bipolar, anxiety, last visit to [facility] was July 2019. States she is suicidal "If I was out there probably yeah", and purposely tried to overdose on I.V heroin intentionally to end her life 2 weeks ago. She has 4 children, removed by CPS 3 years ago. During interview patient is rocking back and forth which is reported to be her symptoms of withdrawal. Says she was at home alone in [facility] and had thoughts of overdosing on her seroquel, states instead of taking it she called 911, and was brought by [facility] to the [facility] ED. States last use of drugs was 5 days ago, "consuelo", and methamphetamine, reports has not used heroin was 2 weeks ago. Patient is rocking constantly, "painful to sit still". Interval: Today was seen lying in bed, not attending group, appears to be dysthymic somewhat tearful, states she has come to terms with admission and needs to stay, states she spoke to her partner last night and that he is still in the hospital recovering from surgery, reports being able to reach him was a relief. Reports tolerated medications without side effects. Understands she might be in a worse position including having worsening suicidal thoughts of discharge from the hospital at this time, without allowing her medications to take effect and control symptoms of severe depression and anxiety. VITAL SIGNS: See below. NEW TEST RESULTS: none CURRENT MEDICATIONS: See below. MENTAL STATUS EXAMINATION: Patient is a 40-year old female, who is in no acute physical complaints, dry skin, disheveled, thin, lying in bed Speech: Is logical, linear. Language skills are good Thought processes including: Linear, logical. Thought content: Suicidal thoughts, depressed mood, anxiety, drug cravings abstract reasoning, and computation: Fair description of associations: Good. Description of abnormal or psychotic thoughts: Denies. Judgment: Poor Insight: Poor. Orientation: x4. Recent and remote memory: Intact. Attention span and concentration: Good. Language: Nepali. Fund of knowledge: Average baseline. Mood: "Okay but not there yet". Affect: Dysthymic, anxious, constricted, labile, tearful, appropriate, mood incongruent DIAGNOSES: Major depressive disorder, recurrent, moderate Substance induced depressive disorder Generalized anxiety disorder Methamphetamine use disorder Cannabis use disorder Heroin use disorder Hallucinogen use disorder, "consuelo" Tobacco use disorder ASSESSMENT: Patient continues to be depressed and anxious, although relieved being able to reach out to her partner, but has concern for wellbeing post surgery. Continues to require time for acute stabilization of depression and mood symptoms and suicidal ideations. MANAGEMENT PLAN: Continue medications. No changes. We will consider increasing citalopram to 20 mg p.o. daily if symptoms do not improve. TIME SPENT: 15 minutes. Vital Signs Vital Signs Date Time Temp Pulse Resp B/P (MAP) Pulse Ox O2 Delivery O2 Flow Rate FiO2 01/19/21 07:55 141/70 01/19/21 06:11 98.0 76 14 97 Room Air Current Medications Current Medications Medications (Trade) Dose Ordered Sig/Allen Route PRN Reason Start Time Stop Time Status Last Admin Dose Admin Acetaminophen (Tylenol Tab) 650 mg Q6HP PRN PO HEADACHE or MILD DISCOMFORT 01/16/21 15:05 01/16/21 21:43 Al Hydrox/Mg Hydrox/Simethicone (Mylanta) 30 ml Q4HP PRN PO HEARTBURN/INDIGESTION 01/16/21 15:05 Bupropion HCl (Wellbutrin Xl) 150 mg DAILY PO 01/17/21 09:00 01/19/21 07:53 Clonidine HCl (Catapres) 0.05 mg BID PO 01/17/21 09:00 01/19/21 07:55 Escitalopram Oxalate (Lexapro) 10 mg DAILY PO 01/17/21 09:10 01/19/21 07:54 Home Med (Home Med List Complete!) ASDIRECTED XX 01/15/21 18:55 01/15/21 19:02 DC Hydroxyzine HCl (Atarax) 50 mg Q6HP PRN PO ANXIETY/AGITATION 01/18/21 12:45 01/18/21 14:54 Magnesium Hydroxide (Milk Of Magnesia) 30 ml DAILYPRN PRN PO CONSTIPATION 01/16/21 15:05 Naltrexone HCl (Revia) 50 mg DAILY PO 01/17/21 09:00 01/19/21 07:55 Nicotine (Nicoderm Cq 21mg) 1 patch DAILY TD 01/17/21 09:00 01/19/21 07:57 Olanzapine (ZyPREXA) 5 mg Q4HP PRN PO AGITATION 01/18/21 12:45 Trazodone HCl (Desyrel) 50 mg QHSP PRN PO INSOMNIA 01/16/21 15:05 01/18/21 10:32 DC 01/16/21 21:42 Trazodone HCl (Desyrel) 100 mg QHSP PRN PO INSOMNIA 01/18/21 10:35 01/18/21 21:58 Allergies Coded Allergies: No Known Allergies (Verified Allergy, Unknown, 03/21/19) ONEAL ROSAS MD Jan 19, 2021 13:30
[2021-01-19 17:59] VITALS: BP 129/67
[2021-01-19] MEDS: traZODone 100 MG TAB PO PRN (21:46)
[2021-01-20 06:43] VITALS: BP 150/70
[2021-01-20] MEDS: NICOTINE 21MG/24HR 1 EA TRANSDERMAL TD SCH (08:09)
[2021-01-20] MEDS: NALTREXONE 50 MG TAB PO SCH (08:10)
[2021-01-20] MEDS: buPROPion **XL** TABLET 150MG (WELLBUTRIN XL) PO SCH (08:10)
[2021-01-20] MEDS: ESCITALOPRAM OXALATE 10 MG TAB (LEXAPRO) PO SCH (08:10)
[2021-01-20] MEDS: cloNIDine 0.05MG 1/2 TABLET PO SCH (08:10)
--- NOTE | 2021-01-20 12:19 | MHIPNPDOC ---
[facility] Progress Note Progress Note DATE OF SERVICE: 01/20/21 HISTORY: Patient is a 40 -year-old , female, who has a history consuelo, methamphetamine, cannabis and heroin use and a reported past psychiatric history of PTSD, ADHD, Bipolar, anxiety, last visit to [facility] was July 2019. States she is suicidal "If I was out there probably yeah", and purposely tried to overdose on I.V heroin intentionally to end her life 2 weeks ago. She has 4 children, removed by CPS 3 years ago. During interview patient is rocking back and forth which is reported to be her symptoms of withdrawal. Says she was at home alone in [facility] and had thoughts of overdosing on her seroquel, states instead of taking it she called 911, and was brought by [facility] to the [facility] ED. States last use of drugs was 5 days ago, "consuelo", and methamphetamine, reports has not used heroin was 2 weeks ago. Patient is rocking constantly, "painful to sit still". Interval: Continues to be in lying in bed, poor group attendance, states that she is tired but okay, continues to be withdrawing from drugs. Reports mood to be a 5 out of 10, continues to be depressed and anxious overall and agrees to some medication adjustments including increasing Lexapro to 20 mg and clonidine to 0.1 mg twice daily. Otherwise denies medication side effects, no acute physical complaints, encouraged to go to groups. States she still concerned about her partner in the hospital after surgery who is recovering. VITAL SIGNS: See below. NEW TEST RESULTS: none CURRENT MEDICATIONS: See below. MENTAL STATUS EXAMINATION: Patient is a 40-year old female, who is in no acute physical complaints, dry skin, disheveled, thin, lying in bed Speech: Is logical, linear. Language skills are good Thought processes including: Linear, logical. Thought content: Suicidal thoughts, depressed mood, anxiety, drug cravings abstract reasoning, and computation: Fair description of associations: Good. Description of abnormal or psychotic thoughts: Denies. Judgment: Poor Insight: Poor. Orientation: x4. Recent and remote memory: Intact. Attention span and concentration: Good. Language: Maltese. Fund of knowledge: Average baseline. Mood: "5 out of 10, alright". Affect: Continues to be depressed, anxious and withdrawn, constricted DIAGNOSES: Major depressive disorder, recurrent, moderate Substance induced depressive disorder Generalized anxiety disorder Methamphetamine use disorder Cannabis use disorder Heroin use disorder Hallucinogen use disorder, "consuelo" Tobacco use disorder ASSESSMENT: Patient continues to experience depression and anxiety, with some mild response to medications, continues to have withdrawals from drug use, but no concerning acute physical symptoms. Reports sleep to be poor however has been sleeping during the day, discussed sleep hygiene and education provided. Education provided risks of drug use with motivational interviewing. MANAGEMENT PLAN: Increase Lexapro from 10 to 20 mg p.o. daily, increase clonidine from 0.05 mg twice daily to 1 mg twice daily. TIME SPENT: 20 minutes. Vital Signs Vital Signs Date Time Temp Pulse Resp B/P (MAP) Pulse Ox O2 Delivery O2 Flow Rate FiO2 01/20/21 08:25 Room Air 01/20/21 08:10 150/70 01/20/21 06:43 99.0 80 18 98 Current Medications Current Medications Medications (Trade) Dose Ordered Sig/Allen Route PRN Reason Start Time Stop Time Status Last Admin Dose Admin Acetaminophen (Tylenol Tab) 650 mg Q6HP PRN PO HEADACHE or MILD DISCOMFORT 01/16/21 15:05 01/16/21 21:43 Al Hydrox/Mg Hydrox/Simethicone (Mylanta) 30 ml Q4HP PRN PO HEARTBURN/INDIGESTION 01/16/21 15:05 Bupropion HCl (Wellbutrin Xl) 150 mg DAILY PO 01/17/21 09:00 01/20/21 08:10 Clonidine HCl (Catapres) 0.05 mg BID PO 01/17/21 09:00 01/20/21 08:10 Escitalopram Oxalate (Lexapro) 10 mg DAILY PO 01/17/21 09:10 01/20/21 08:10 Home Med (Home Med List Complete!) ASDIRECTED XX 01/15/21 18:55 01/15/21 19:02 DC Hydroxyzine HCl (Atarax) 50 mg Q6HP PRN PO ANXIETY/AGITATION 01/18/21 12:45 01/18/21 14:54 Magnesium Hydroxide (Milk Of Magnesia) 30 ml DAILYPRN PRN PO CONSTIPATION 01/16/21 15:05 Naltrexone HCl (Revia) 50 mg DAILY PO 01/17/21 09:00 01/20/21 08:10 Nicotine (Nicoderm Cq 21mg) 1 patch DAILY TD 01/17/21 09:00 01/20/21 08:09 Olanzapine (ZyPREXA) 5 mg Q4HP PRN PO AGITATION 01/18/21 12:45 Trazodone HCl (Desyrel) 50 mg QHSP PRN PO INSOMNIA 01/16/21 15:05 01/18/21 10:32 DC 01/16/21 21:42 Trazodone HCl (Desyrel) 100 mg QHSP PRN PO INSOMNIA 01/18/21 10:35 01/19/21 21:46 Allergies Coded Allergies: No Known Allergies (Verified Allergy, Unknown, 03/21/19) ONEAL ROSAS MD Jan 20, 2021 12:19
[2021-01-20 19:01] VITALS: BP 119/58
[2021-01-20] MEDS: traZODone 100 MG TAB PO PRN (21:57)
[2021-01-20] MEDS: cloNIDine 0.1MG TABLET PO SCH (22:02)
[2021-01-21] MEDS: NALTREXONE 50 MG TAB PO SCH (08:57)
[2021-01-21] MEDS: NICOTINE 21MG/24HR 1 EA TRANSDERMAL TD SCH (08:57)
[2021-01-21] MEDS: buPROPion **XL** TABLET 150MG (WELLBUTRIN XL) PO SCH (08:58)
[2021-01-21] MEDS: ESCITALOPRAM OXALATE 10 MG TAB (LEXAPRO) PO SCH (08:58)
[2021-01-21] MEDS: cloNIDine 0.1MG TABLET PO SCH ×2 (09:00→22:16)
[2021-01-21 18:48] VITALS: BP 140/80
[2021-01-21] MEDS: traZODone 100 MG TAB PO PRN (22:17)
[2021-01-22 06:00] VITALS: BP 101/59
[2021-01-22] MEDS: ESCITALOPRAM OXALATE 10 MG TAB (LEXAPRO) PO SCH (08:03)
[2021-01-22] MEDS: NALTREXONE 50 MG TAB PO SCH (08:03)
[2021-01-22] MEDS: buPROPion **XL** TABLET 150MG (WELLBUTRIN XL) PO SCH (08:03)
[2021-01-22] MEDS: cloNIDine 0.1MG TABLET PO SCH ×2 (08:05→20:58)
[2021-01-22] MEDS: NICOTINE 21MG/24HR 1 EA TRANSDERMAL TD SCH (08:06)
[2021-01-22 18:44] VITALS: BP 108/56
[2021-01-22] MEDS: traZODone 100 MG TAB PO PRN (20:57)
[2021-01-23] MEDS: NICOTINE 21MG/24HR 1 EA TRANSDERMAL TD SCH (08:06)
[2021-01-23] MEDS: buPROPion **XL** TABLET 150MG (WELLBUTRIN XL) PO SCH (08:07)
[2021-01-23] MEDS: ESCITALOPRAM OXALATE 10 MG TAB (LEXAPRO) PO SCH (08:07)
[2021-01-23] MEDS: cloNIDine 0.1MG TABLET PO SCH ×2 (08:08→20:45)
[2021-01-23] MEDS: NALTREXONE 50 MG TAB PO SCH (08:08)
--- NOTE | 2021-01-23 14:12 | MHIPNPDOC ---
[facility] Progress Note Progress Note DATE OF SERVICE: 01/23/21 HISTORY: Patient is a 40 -year-old , female, who has a history consuelo, methamphetamine, cannabis and heroin use and a reported past psychiatric history of PTSD, ADHD, Bipolar, anxiety, last visit to [facility] was July 2019. States she is suicidal "If I was out there probably yeah", and purposely tried to overdose on I.V heroin intentionally to end her life 2 weeks ago. She has 4 children, removed by CPS 3 years ago. During interview patient is rocking back and forth which is reported to be her symptoms of withdrawal. Says she was at home alone in [facility] and had thoughts of overdosing on her seroquel, states instead of taking it she called 911, and was brought by [facility] to the [facility] ED. States last use of drugs was 5 days ago, "consuelo", and methamphetamine, reports has not used heroin was 2 weeks ago. Patient is rocking constantly, "painful to sit still". 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 Denies acute physical complaints, states she is living with her partner who is recovering well from surgery but will be released from the hospital anytime soon, is further reassured by this news. Denies medication side effects VITAL SIGNS: See below. NEW TEST RESULTS: none CURRENT MEDICATIONS: See below. MENTAL STATUS EXAMINATION: Patient is a 40-year old female, who is in no acute physical complaints, dry skin, improved hygiene, thin, sitting in bed, improved eye contact Speech: Is nonspontaneous, normal rate, rhythm lower volume. Language skills are good Thought processes including: Linear, logical. Thought content: Denies any suicidal thoughts today abstract reasoning, and computation: Fair description of associations: Good. Description of abnormal or psychotic thoughts: Denies. Judgment: Improving Insight: Fair. Orientation: x4. Recent and remote memory: Intact. Attention span and concentration: Good. Language: Thai. Fund of knowledge: Average baseline. Mood: "Good". Affect: Mildly constricted, bored, less dysthymic, not anxious DIAGNOSES: Major depressive disorder, recurrent, moderate Substance induced depressive disorder Generalized anxiety disorder Methamphetamine use disorder Cannabis use disorder Heroin use disorder Hallucinogen use disorder, "consuelo" Tobacco use disorder ASSESSMENT: Patient reports medications are helping with depression anxiety, no longer having suicidal thoughts, contracts for safety, was encouraged to attend groups and states she will attend all the groups this afternoon. Denies any medication side effects or acute physical complaints, is agreeable to safety planning and going to outpatient appointments, future oriented to return to school. Possible discharge tomorrow or Saturday if symptoms improve adequate safety plan can be made inpatient is more engaged with treatment including going to groups, which is evidence of improvement. MANAGEMENT PLAN: Continue Lexapro 20 mg p.o. daily, continue clonidine 0.1 mg twice daily, naltrexone 50 mg. TIME SPENT: 15 minutes. Vital Signs Vital Signs Date Time Temp Pulse Resp B/P (MAP) Pulse Ox O2 Delivery O2 Flow Rate FiO2 01/23/21 08:08 114/62 01/22/21 18:44 98.5 83 16 01/22/21 06:00 96 01/20/21 08:25 Room Air Current Medications Current Medications Medications (Trade) Dose Ordered Sig/Allen Route PRN Reason Start Time Stop Time Status Last Admin Dose Admin Acetaminophen (Tylenol Tab) 650 mg Q6HP PRN PO HEADACHE or MILD DISCOMFORT 01/16/21 15:05 01/16/21 21:43 Al Hydrox/Mg Hydrox/Simethicone (Mylanta) 30 ml Q4HP PRN PO HEARTBURN/INDIGESTION 01/16/21 15:05 Bupropion HCl (Wellbutrin Xl) 150 mg DAILY PO 01/17/21 09:00 01/23/21 08:07 Clonidine HCl (Catapres) 0.05 mg BID PO 01/17/21 09:00 01/20/21 12:20 DC 01/20/21 08:10 Clonidine HCl (Catapres) 0.1 mg BID PO 01/20/21 21:00 01/23/21 08:08 Escitalopram Oxalate (Lexapro) 10 mg DAILY PO 01/17/21 09:10 01/20/21 12:20 DC 01/20/21 08:10 Escitalopram Oxalate (Lexapro) 20 mg DAILY PO 01/21/21 09:00 01/23/21 08:07 Home Med (Home Med List Complete!) ASDIRECTED XX 01/15/21 18:55 01/15/21 19:02 DC Hydroxyzine HCl (Atarax) 50 mg Q6HP PRN PO ANXIETY/AGITATION 01/18/21 12:45 01/18/21 14:54 Magnesium Hydroxide (Milk Of Magnesia) 30 ml DAILYPRN PRN PO CONSTIPATION 01/16/21 15:05 Naltrexone HCl (Revia) 50 mg DAILY PO 01/17/21 09:00 01/23/21 08:08 Nicotine (Nicoderm Cq 21mg) 1 patch DAILY TD 01/17/21 09:00 01/23/21 08:06 Olanzapine (ZyPREXA) 5 mg Q4HP PRN PO AGITATION 01/18/21 12:45 Trazodone HCl (Desyrel) 50 mg QHSP PRN PO INSOMNIA 01/16/21 15:05 01/18/21 10:32 DC 01/16/21 21:42 Trazodone HCl (Desyrel) 100 mg QHSP PRN PO INSOMNIA 01/18/21 10:35 01/22/21 20:57 Allergies Coded Allergies: No Known Allergies (Verified Allergy, Unknown, 03/21/19) ONEAL ROSAS MD Jan 23, 2021 14:12
[2021-01-23 16:12] VITALS: BP 110/62
[2021-01-23] MEDS: traZODone 100 MG TAB PO PRN (20:45)
[2021-01-24 06:19] VITALS: BP 106/71
[2021-01-24] MEDS ORDERED: NICO21PAT TD (08:35)
[2021-01-24] MEDS ORDERED: LEXA1TAB PO (08:35)
[2021-01-24] MEDS ORDERED: BUPR150T12 PO (08:35)
[2021-01-24] MEDS ORDERED: NALT50TA4 PO (08:35)
[2021-01-24] MEDS ORDERED: CLONI1TA PO (08:35)
[2021-01-24] MEDS ORDERED: TRAZ-257 PO (08:35)
[2021-01-24] MEDS: NICOTINE 21MG/24HR 1 EA TRANSDERMAL TD SCH (09:00)
[2021-01-24 09:32] VITALS: BP 116/66
[2021-01-24] MEDS: buPROPion **XL** TABLET 150MG (WELLBUTRIN XL) PO SCH (09:32)
[2021-01-24] MEDS: cloNIDine 0.1MG TABLET PO SCH (09:32)
[2021-01-24] MEDS: ESCITALOPRAM OXALATE 10 MG TAB (LEXAPRO) PO SCH (09:32)
[2021-01-24] MEDS: NALTREXONE 50 MG TAB PO SCH (09:32)
--- NOTE | 2021-01-24 15:31 | MHDSPDOC ---
[facility] Discharge Summary Discharge Summary DATE OF ADMISSION: Jan 16, 2021 at 15:01 DATE OF DISCHARGE: Jan 24, 2021 at 12:45 Discharge diagnoses: Major depressive disorder, recurrent, moderate Substance induced depressive disorder Generalized anxiety disorder Methamphetamine use disorder Cannabis use disorder Heroin use disorder Hallucinogen use disorder, "consuelo" Tobacco use disorder Reason for admission: Patient is a 40 -year-old , female, who has a history consuelo, methamphetamine, cannabis and heroin use and a reported past psychiatric history of PTSD, ADHD, Bipolar, anxiety, last visit to [facility] was July 2019. States she is suicidal "If I was out there probably yeah", and purposely tried to overdose on I.V heroin intentionally to end her life 2 weeks ago. She has 4 children, removed by CPS 3 years ago. During interview patient is rocking back and forth which is reported to be her symptoms of withdrawal. Says she was at home alone in [facility] and had thoughts of overdosing on her seroquel, states instead of taking it she called 911, and was [facility] by [facility]. States last use of drugs was 5 days ago, "consuelo", and methamphetamine, reports has not used heroin was 2 weeks ago. Patient is rocking constantly, "painful to sit still". Vital signs: See below Consultants involved: See medical H&P by hospitalist Treatment and progress on the unit: Patient was admitted to the [facility] on a 9.39 legal status and was afforded the following treatment modalities: 1. Individual therapy 2. Group therapy 3. Medication management 4. Milieu therapy 5. Safe environment Hospital course: Patient was admitted to the [facility] on a 9.39 legal status. Was medically cleared prior to coming up to the [facility]. Initially presented with symptoms of depression, anhedonia, hopelessness, and vague suicidal ideation, had called 911 due to thoughts of overdosing on her Seroquel. Reported stressor of her partner being in the hospital due to necrotic bone infection in his neck, and was able to talk to was worried about where he was and what was going to happen to him. She was eventually able to get a hold of him and finally he got treatment including surgery and is helped with her mood, as well as medications help with mood including clonidine which was increased to 0.1 mg p.o. twice daily, was also started on Lexapro 20 mg and Wellbutrin 150 mg extended release, with good effect. During the course of stay patient's affect brightened, reported improvement in anxiety and depressive symptoms, no longer endorsed suicidal thoughts. Symptoms of drug withdrawals, including rocking back and forth subsided, which was initially suspected as akathisia. Extensive education regarding substance use including risks of , worsening of anxiety and depressive symptoms, deleterious effects on overall health were discussed with patient, through motivational interviewing. Patient endorsed that should reduce cravings for drug use, since starting naltrexone 50 mg by mouth daily, patient found medications beneficial and tolerated them well. Denies mood anxiety and intrusive thoughts which improved with treatment. Patient attended groups daily during stay. Patient symptoms improved with treatment. On day of discharge patient denied depression, anxiety, insomnia, suicidal or homicidal ideations intent or plan, hallucinations, delusions. Patient was discharged home with follow-up. Patient felt safe for discharge. Was offered continued stay on voluntary admission but refused. Discharge assessment: On today's interview patient is alert and oriented, dressed appropriately. Patient's affect is bright, full, continues to report fatigue due to being on the inpatient unit and feeling bored, he is future oriented and wants to be reunited with her partner, with the understanding he will join her when he leaves the hospital. Engaged on interview hygiene and grooming is well-kept. Smiles on approach and is pleasant and engaged on interview. Denies depression and anxiety. Denies suicidal homicidal ideation, intent or planning. Denies and is not observed with michael or psychotic symptoms of delusions, hallucinations, bizarre thinking, obsessions, paranoia, ruminations, illogical thoughts, flight of ideas or having poor insight or judgment. Patient has normal mentation, declines further hospitalization of voluntary status and meets criteria for discharge today, patient encouraged to return the hospital if symptoms worsen or change and encouraged to call unit if they feel they need provider's questions to be answered or help with medications or care. Mental status: Patient is a 40-year old female, who is in no acute physical complaints, dry skin, improved hygiene, thin, sitting in bed, improved eye contact Speech: Is spontaneous, normal rate, rhythm lower volume. Language skills are good Thought processes including: Linear, logical. Thought content: Denies any suicidal ideation, intent or plan. Denies any homicidal ideation, intent or plan. abstract reasoning, and computation: Fair description of associations: Good. Description of abnormal or psychotic thoughts: Denies. No symptoms of michael Judgment: Fair Insight: Good. Orientation: x4. Recent and remote memory: Intact. Attention span and concentration: Good. Language: Dominican. Fund of knowledge: Average baseline. Mood: "really good". Affect: Euthymic, bored, somewhat tired, full, appropriate Medications on discharge: -see medication reconciliation: CSSRS on discharge: Wish to be : No nonspecific active suicidal thoughts: No lifetime attempts: 3-4, all by overdose, last O.D attempt with heroin, 2 weeks, "told them it was accidental so went home from ED" interrupted attempts: 0 aborted attempts: 0 preparatory acts or behavior: None Taking into consideration safety state, status, modifiable, non-modifiable risk factors patient is at chronically elevated risk on discharge for suicide according to [facility] suicide evaluation. PLAN/FOLLOWUP ARRANGEMENTS: Follow Up Care Education Label * Chemical Dependency Appt1 * Chemical Dependency [facility] * Address of Clinic or Practice [address] [place] [address] * * Additional information Walk in hours Saturday through Saturday from 8am to 4pm Follow Up Care Education Label * Chemical Dependency Appt2 * Chemical Dependency [facility] * Address of Clinic or Practice [address] [place] [address] * * Additional information Walk in hours Saturday through Saturday from 730am to 1230pm Follow Up Care Education Label * Mental Health Appt 1 * Mental Health [facility] * Established With This Provider No NEW PATIENT * Therapist DIVINA OLIVARES * Date Jan 26, 2021 * Time 13:00 * Address of Clinic or Practice [address] [place] [address] * Follow Up Care Education Label * Medical * Medical Follow Up [facility] * Established With This Provider No NEW PATIENT * Therapist MICHAEL * Date Feb 10, 2021 * Time 10:00 * Address of Clinic or Practice [address] [place] [address] * The amount of time spent in the coordination of care for this patient was approximately 25 minutes. ETOH/Disorder Med Rx ETOH/DRUG DISORDER RX: Given to pt at d/c Vital Signs/I&Os Vital Signs Date Time Temp Pulse Resp B/P (MAP) Pulse Ox O2 Delivery O2 Flow Rate FiO2 01/24/21 09:32 116/66 01/24/21 06:19 97.8 68 12 99 Room Air Medications Scheduled Bupropion Hcl (Bupropion Xl) 150 Mg Tab.er.24h, 150 MG PO DAILY for depression, #7 Clonidine Hcl (Clonidine HCl) 0.1 Mg Tablet, 0.1 MG PO BID for anxiety, #14 Escitalopram Oxalate (Lexapro) 10 Mg Tablet, 20 MG PO DAILY for mood, #7 Naltrexone HCl (Naltrexone HCl) 50 Mg Tablet, 50 MG PO DAILY for opioid cravings, #7 Nicotine (Nicotine Patch) 21 Mg Patch.td24, 1 PATCH TD DAILY for nicotine cravings, #7 Scheduled PRN Trazodone HCl (Trazodone HCl) 100 Mg Tablet, 100 MG PO QHSP PRN for INSOMNIA, #7 Allergies Coded Allergies: No Known Allergies (Verified Allergy, Unknown, 03/21/19) ONEAL ROSAS MD Jan 24, 2021 15:31
== END 2021-01-24 12:45 | disposition home or self-care (01) | DRG 751 ==
LOC: M ED 16:51 → M ED INP 01-16 15:01 → M PSY 01-16 18:30
PROVIDERS: ADMIT Student in an Organized Health Care Education/Training Program; ATTEND Student in an Organized Health Care Education/Training Program
DX: F33.1 Major depressive disorder, recurrent, moderate (principal); F15.150 Other stimulant abuse with stimulant-induced psychotic disorder with delusions; R45.851 Suicidal ideations; F41.1 Generalized anxiety disorder; F11.14 Opioid abuse with opioid-induced mood disorder; F12.10 Cannabis abuse, uncomplicated; F16.10 Hallucinogen abuse, uncomplicated; F17.200 Nicotine dependence, unspecified, uncomplicated; Z91.51 Personal history of suicidal behavior; Z62.810 Personal history of physical and sexual abuse in childhood; F15.13 Other stimulant abuse with withdrawal; Z20.822 Contact with and (suspected) exposure to COVID-19

== ENCOUNTER 2023-12-08 14:36 | Emergency (ER) | payer MEDICAID, OTHER ==
[~2023-12-08] VITALS: Ht 152.4 cm; Wt 90.6 kg
[~2023-12-08 14:36] MED LIST changes: +BUPR150T12 PO; +CLONI1TA PO; +LEXA1TAB PO; +NALT50TA4 PO; +TRAZ-257 PO
[2023-12-08] MEDS ORDERED: IBUP-1022 PO (14:47)
[2023-12-08 16:04] LABS: BASO # 0.1 10^3/uL (0.0-0.2); BASO % 0.7 % (0.0-1.0); EOS # 0.1 10^3/uL (0.0-0.5); EOS % 1.2 % (0.0-3.0); HEMATOCRIT 43.2 % (36.0-47.0); HEMOGLOBIN 14.7 g/dl (12.0-15.5); LYMPH # 2.8 10^3/uL (1.5-5.0); LYMPH % 30.8 % (24.0-44.0); MEAN CORPUSCULAR HEMOGLOBIN 30.2 pg (27.0-33.0); MEAN CORPUSCULAR VOLUME 88.7 fl (80.0-96.0); MONO # 0.6 10^3/uL (0.0-0.8); MONO % 6.8 % (2.0-8.0); NEUTROPHILS # 5.4 10^3/uL (1.5-8.5); NEUTROPHILS % 60.2 % (36.0-66.0); PLATELET COUNT, AUTOMATED 151 10^3/uL (150-450); RED BLOOD COUNT 4.87 10^6/uL (4.00-5.40)
[2023-12-08 16:08] LABS: ERYTHROCYTE SEDIMENTATION RATE 19 mm/hr (0-20)
[2023-12-08] MEDS: ACETAMINOPHEN *IV* 1,000 MG in IV 1 EA IV ONE (16:11)
[2023-12-08] MEDS: NS 1,000 ML IV ONE (16:11)
[2023-12-08 16:44] LABS: HCG, SERUM QUALITATIVE NEGATIVE (NEGATIVE)
[2023-12-08 17:18] LABS: PROCALCITONIN 0.07 ng/ml
[2023-12-08] MEDS: LIDOCAINE 1% MDV 20ML VIAL IM ONE (17:25)
[2023-12-08] MEDS: DOXYCYCLINE HYCLATE 100 MG in D5W MINI-BAG PLUS 100 ML IV ONE (17:31)
[2023-12-08] MEDS ORDERED: DOXY-323 PO (17:51)
[2023-12-08 18:37] VITALS: BP 128/84; TEMP 98.6; O2SAT 98
== END 2023-12-08 18:39 | disposition home or self-care (01) ==
LOC: M ED 14:36
DX: L02.91 Cutaneous abscess, unspecified (principal); F41.9 Anxiety disorder, unspecified; F32.A Depression, unspecified; Z79.1 Long term (current) use of non-steroidal anti-inflammatories (NSAID); Z79.2 Long term (current) use of antibiotics
CPT/HCPCS: 10060; 36415; 76882; 80047; 83605; 84145; 84703; 85025; 85652; 86140; 87040; 87070; 87077; 87186; 87205; 96365; 96366; 96372; 99284; J0131

== ENCOUNTER 2023-12-11 09:22 | Emergency (ER) | payer OTHER ==
[~2023-12-11] VITALS: Ht 152.4 cm; Wt 91.1 kg
[~2023-12-11 09:22] MED LIST changes: +DOXY-323 PO
[2023-12-11 11:58] VITALS: BP 130/74; TEMP 98.3; O2SAT 98
== END 2023-12-11 12:04 | disposition home or self-care (01) ==
LOC: M ED 09:22
DX: L02.91 Cutaneous abscess, unspecified (principal); Z79.1 Long term (current) use of non-steroidal anti-inflammatories (NSAID); Z79.2 Long term (current) use of antibiotics

== ENCOUNTER 2024-01-31 15:58 | Emergency (ER) | payer OTHER ==
[~2024-01-31] VITALS: Ht 152.4 cm; Wt 89.4 kg
[~2024-01-31 15:58] MED LIST changes: -DOXY-323 PO; +DOXY-441 PO
[2024-01-31] MEDS ORDERED: ACET160S6 FT (16:19)
[2024-01-31 17:43] LABS: BASO # 0.1 10^3/uL (0.0-0.2); BASO % 0.5 % (0.0-1.0); EOS # 0.1 10^3/uL (0.0-0.5); HEMATOCRIT 43.3 % (36.0-47.0); LYMPH % 31.3 % (24.0-44.0); MEAN CORPUSCULAR HEMOGLOBIN 29.8 pg (27.0-33.0); MEAN CORPUSCULAR HGB CONC 34.6 g/dl (32.0-36.5); MEAN CORPUSCULAR VOLUME 85.9 fl (80.0-96.0); MONO # 0.6 10^3/uL (0.0-0.8); MONO % 6.2 % (2.0-8.0); NEUTROPHILS # 5.8 10^3/uL (1.5-8.5); NEUTROPHILS % 60.8 % (36.0-66.0); PLATELET COUNT, AUTOMATED 170 10^3/uL (150-450); RED BLOOD COUNT 5.04 10^6/uL (4.00-5.40); WHITE BLOOD COUNT 9.6 10^3/uL (4.0-10.0)
[2024-01-31 17:50] LABS: ERYTHROCYTE SEDIMENTATION RATE 15 mm/hr (0-20)
[2024-01-31 18:13] LABS: BLOOD UREA NITROGEN 16 MG/DL (9-23); CALCIUM LEVEL 9.4 MG/DL (8.5-10.1); CARBON DIOXIDE LEVEL 28 MMOL/L (20-31); CHLORIDE LEVEL 104 MMOL/L (98-107); CREATININE FOR GFR 0.82 MG/DL (0.55-1.30); GLOMERULAR FILTRATION RATE > 60.0 (>58); GLUCOSE, FASTING 84 MG/DL (60-100); SODIUM LEVEL 138 MMOL/L (136-145)
[2024-01-31] MEDS ORDERED: AMOX875T2 PO (20:04)
[2024-01-31] MEDS ORDERED: IBUP80TA PO (20:04)
[2024-01-31] MEDS: AUGMENTIN 875 MG TAB PO ONE (20:07)
[2024-01-31] MEDS: IBUPROFEN 800 MG TAB PO ONE (20:08)
[2024-01-31 20:13] VITALS: BP 138/92; TEMP 99; O2SAT 98
== END 2024-01-31 20:14 | disposition home or self-care (01) ==
LOC: M ED 15:58
DX: K04.7 Periapical abscess without sinus (principal); Z79.1 Long term (current) use of non-steroidal anti-inflammatories (NSAID); Z79.2 Long term (current) use of antibiotics

== ENCOUNTER 2025-03-24 07:25 | Emergency (ER) | payer OTHER ==
[~2025-03-24] VITALS: Ht 152.4 cm; Wt 84.8 kg
[~2025-03-24 07:25] MED LIST changes: +ACET160S6 FT; +AMOX875T2 PO; -BACTDSTA PO; -IBUP-1022 PO; -IBUP1TAB6 PO; +IBUP600T42 PO; +IBUP80TA PO; +SFHIBU600 PO; +SULF-8 PO
[2025-03-24 07:45] VITALS: BP 115/70
[2025-03-24] MEDS: LIDOCAINE W/EPINEPHrine 1% 20 ML VIAL SC ONE (07:53)
[2025-03-24] MEDS: ONDANSETRON 4MG ORAL DISINTEGRATING TAB PO ONE (07:53)
[2025-03-24] MEDS: NEOSPORIN OINT 0.9 GM PKT TOP ONE (07:54)
[2025-03-24] MEDS ORDERED: BACT800T5 PO (08:21)
[2025-03-24] MEDS ORDERED: ONDA-282 PO (08:21)
[2025-03-24 08:25] VITALS: TEMP 97.2; O2SAT 96
[2025-03-24] MEDS: LIDOCAINE 1% SDV 5 ML VIAL DILUENT ONE (08:40)
== END 2025-03-24 08:45 | disposition home or self-care (01) ==
LOC: EDBD 07:25 → M ED 07:25
DX: L02.212 Cutaneous abscess of back [any part, except buttock and flank] (principal); Z79.1 Long term (current) use of non-steroidal anti-inflammatories (NSAID); Z79.2 Long term (current) use of antibiotics; Z79.899 Other long term (current) drug therapy
CPT/HCPCS: 10060; 87070; 87077; 87186; 96372; 99284; J0696